=== PATIENT | male | born 1960 | race Caucasian/White ===

== ENCOUNTER 2016-07-23 18:16 | Emergency (ER) | payer MEDICARE ==
[~2016-07-23 18:16] MED LIST: AMBIEN5 MG PO; AMOXICILLIN500 M1 PO; APAP325 MG PO; ATIVAN0.5 MG PO; ATIVAN1 MG PO; BACTROBAN NASAL1 GM NS; BOUDREAUXS113 GM TP; BUPRENORPHI0.3 MG/ML INJ; CARAFATE1 G PO; COUMADIN5 MG PO; COUMADIN7.5 MG PO; D5NS IVSOL; D5W 1000 ML I1000 ML IV; DAKIN'S 0.125%480 ML TP; DIFLUCAN100 MG PO; ENSURE PLUS PO; ENSURE PO; FISH OIL 1,0001 CA1 PO; FISH OIL 1,2001 CAP PO; FLAGYL500 MG; FLAGYL500 MG PO; FLORANEX / LACT1 TAB PO; FLUCONAZOLE IVPB; HEPARIN SOD5000 U/ML INJ; HUMULIN R100 U/ML SQ; IMODIUM A-D2 MG PO; IMODIUM2 MG PO; INTRALIPID 20%250 ML IV; JANTOVEN7.5 MG PO; K-DUR20 MEQ PO; LACTINEX C1 TAB.CHEW PO; LEVAQUIN500 MG PO; LOMOTIL TABLET1 TAB PO; LORTAB 7.5/5001 TA1 PO; LOTRIMIN10 ML TP; LOVENOX30 MG/0.3 SQ; MAG-OX 400 MG400 MG PO; MEVACOR40 MG PO; MUCINEX DM ER1 EAC1 PO; MULTIPLE VITAMI1 TA1 PO; NEOSPORIN OINTM15 GM TP; NORCO 10/325 TA1 TA1 PO; NORCO 5/325 TAB1 TA1 PO; NORCO 7.5-3251 EACH PO; NORCO 7.5/325 T1 TA1 PO; ONDANSETRON4 MG/2 M3 IV; PEPCID20 MG PO; PHOS-NAK PAC1 PACKET PO; PREDNISONE10 MG PO; PREDNISONE20 MG PO; PREDNISONE5 MG PO; PRO STAT PO; PROTONIX40 MG PO; QUESTRAN LIG1 PACKET PO; QUESTRAN LIGH4 G/PKT; QUESTRAN PACK4 G/PKT PO; RAPAMUNE1 MG PO; RAPAMUNE2 MG PO; RESTORIL15 MG PO; RESTORIL7.5 MG PO; RIMACTANE300 MG PO; ROXICODONE5 MG PO; SALINE FLUSH10 ML IJ; SENSIPAR30 MG PO; TEMAZEPAM PO; TYLENOL 325 MG325 MG PO; ULTRAM50 MG PO; VANCOMYCIN250 MG/51; VASOTEC20 MG PO; VITAMIN K1 MG/0.5 M PO; ZOFRAN ODT4 MG/UDTAB PO; ZYVOX600 MG PO
[2016-07-23 20:25] LABS: BASOPHILS 0.1 % (0.0-2.0); EOSINOPHILS 0.2 % (0-7); HEMATOCRIT 41.9 % (42.0-54.0); HEMOGLOBIN 14.1 g/dL (13.5-17.5); IMMATURE GRANULOCYTES 0.2 % (0-5); LYMPHOCYTES 46.7 % (15-50); MCH 29.1 pg (26.0-34.0); MCHC 33.7 g/dL (31.0-37.0); MCV 86.4 fL (80.0-100.0); MEAN PLATELET VOLUME 11.2 fL (7.4-10.4); MONOCYTES 9.6 % (2-11); NEUTROPHILS 43.2 % (40-80); PLATELET COUNT 258 10x3/uL (130-400); RBC 4.85 10x6/uL (4.20-6.10); RDW 15.5 % (11.5-14.5); WBC 12.1 10x3/uL (4.8-10.8)
[2016-07-23 20:34] LABS: INR 2.29 (0.85-1.17); PROTIME 25.3 SECONDS (11.6-15.0)
[2016-07-23 20:39] LABS: CALC OSMOLALITY 277 mosm/kg (275-300); CALCIUM 8.8 mg/dL (8.5-10.1); CARBON DIOXIDE 21.9 mmol/L (21.0-32.0); CHLORIDE - SERUM 105 mmol/L (98-107); GLUCOSE 91 mg/dL (74-106); POTASSIUM - SERUM 4.2 mmol/L (3.5-5.1); SODIUM 139 mmol/L (136-145); UREA NITROGEN 12 mg/dL (7-18); eGFR NON AFRICAN AMERICAN 82 mL/min (90-120)
== END 2016-07-23 21:35 | disposition home or self-care (01) ==
LOC: D.ER 18:16
PROVIDERS: Emergency Medicine
DX: M79.662 Pain in left lower leg (principal); E83.42 Hypomagnesemia

== ENCOUNTER 2016-07-31 13:31 | Emergency (ER) | payer MEDICARE ==
[2016-07-31 16:27] LABS: BASOPHILS 0.1 % (0.0-2.0); EOSINOPHILS 0.1 % (0-7); HEMATOCRIT 38.7 % (42.0-54.0); HEMOGLOBIN 13.1 g/dL (13.5-17.5); IMMATURE GRANULOCYTES 0.4 % (0-5); LYMPHOCYTES 22.4 % (15-50); MCH 28.8 pg (26.0-34.0); MCHC 33.9 g/dL (31.0-37.0); MCV 85.1 fL (80.0-100.0); MEAN PLATELET VOLUME 10.8 fL (7.4-10.4); MONOCYTES 8.8 % (2-11); NEUTROPHILS 68.2 % (40-80); PLATELET COUNT 283 10x3/uL (130-400); RBC 4.55 10x6/uL (4.20-6.10); RDW 15.3 % (11.5-14.5)
[2016-07-31 16:40] LABS: ALBUMIN 2.7 g/dL (3.4-5.0); ANION GAP 14.7 mmol/L (8-16); BILIRUBIN - TOTAL 0.46 mg/dL (0.2-1.3); CALCIUM 8.9 mg/dL (8.5-10.1); CARBON DIOXIDE 22.5 mmol/L (21.0-32.0); CREATININE - SERUM 1.3 mg/dL (0.6-1.3); POTASSIUM - SERUM 4.2 mmol/L (3.5-5.1); PROTEIN - SERUM 7.5 g/dL (6.4-8.2)
[2016-07-31 20:17] LABS: APTT 68.8 SECONDS (22.8-39.4); INR 2.77 (0.85-1.17); PROTIME 29.4 SECONDS (11.6-15.0)
== END 2016-07-31 21:15 | disposition home or self-care (01) ==
LOC: D.ER 13:31
PROVIDERS: Emergency Medicine; Surgery
DX: S70.12XA Contusion of left thigh, initial encounter (principal); X58.XXXA Exposure to other specified factors, initial encounter; Y93.89 Activity, other specified; Y92.89 Other specified places as the place of occurrence of the external cause; N18.9 Chronic kidney disease, unspecified; D65 Disseminated intravascular coagulation [defibrination syndrome]; E83.42 Hypomagnesemia; M79.89 Other specified soft tissue disorders

== ENCOUNTER 2016-08-07 10:55 | Inpatient (IN) | payer MEDICARE ==
[~2016-08-07] VITALS: Ht 182.9 cm; Wt 78.2 kg
[2016-08-07] MEDS ORDERED: VIBRAMYCIN50 MG PO (13:55)
[2016-08-07] MEDS ORDERED: TEMAZEPAM30 MG PO (14:01)
[2016-08-07] MEDS ORDERED: KEFLEX500 MG PO (14:03)
[2016-08-07] MEDS ORDERED: VIBRAMYCIN 100100 MG PO (14:06)
--- NOTE | 2016-08-07 15:05 | NUR ---
PATIENT RECEIVED TO ROOM. VSS, TACHYCARDIA NOTED. ABLE TO RELATE HISTORY WITH HUMOR. AT THE BEDSIDE, PARTICIPATES IN RELAY OF INFORMATION. SPOKE WITH RIDGE JIMENEZ APN. NEW ORDERS RECEIVED FOR PAIN CONTROL AND RECEIPT OF BASELINE INFORMATION, LAB WORK. DR. SCHMITT CURRENTLY IN TO ASSESS PATIENT. WILL COMPLETE ASSESSMENT AND MEDICATE WHEN SHE HAS COMPLETED HER WORK.
--- NOTE | 2016-08-07 15:29 | NUR ---
PATIENT RATES THE PAIN IN HIS LEFT THIGH A 9. HE STATES THAT IT IS BURNING AND CRAMPING. HE IS UNABLE TO STRAIGHTEN THE STUMP BELOW THE KNEE. THE LEFT LEG IS WARM WITH A COOL PLACE THAT IS NORMAL FOR HIM. HIS BLOOD HAS BEEN DRAWN AND HE IS IMPRESSED THAT THEY WERE ABLE TO GET SOME FROM THE RIGHT ARM. SPOKE WITH THE VENOUS ACCESS NURSE, HE IS NOT A CANDIDATE FOR A MIDLINE ACCESS.
[2016-08-07 15:37] LABS: BASOPHILS 0.1 % (0.0-2.0); EOSINOPHILS 0.2 % (0-7); HEMATOCRIT 33.3 % (42.0-54.0); HEMOGLOBIN 11.1 g/dL (13.5-17.5); IMMATURE GRANULOCYTES 0.5 % (0-5); LYMPHOCYTES 28.2 % (15-50); MCH 27.5 pg (26.0-34.0); MCHC 33.3 g/dL (31.0-37.0); MCV 82.6 fL (80.0-100.0); MEAN PLATELET VOLUME 11.1 fL (7.4-10.4); MONOCYTES 8.5 % (2-11); NEUTROPHILS 62.5 % (40-80); RBC 4.03 10x6/uL (4.20-6.10); RDW 15.1 % (11.5-14.5); WBC 11.1 10x3/uL (4.8-10.8)
[2016-08-07 15:44] LABS: PLATELET COUNT 402 10x3/uL (130-400)
[2016-08-07 15:58] LABS: ALBUMIN 2.1 g/dL (3.4-5.0); ANION GAP 14.9 mmol/L (8-16); BILIRUBIN - TOTAL 0.29 mg/dL (0.2-1.3); CALCIUM 8.7 mg/dL (8.5-10.1); CARBON DIOXIDE 21.8 mmol/L (21.0-32.0); CREATININE - SERUM 1.2 mg/dL (0.6-1.3); INR 3.25 (0.85-1.17); POTASSIUM - SERUM 3.7 mmol/L (3.5-5.1); PROTEIN - SERUM 6.9 g/dL (6.4-8.2); PROTIME 33.5 SECONDS (11.6-15.0)
--- NOTE | 2016-08-07 16:01 | NUR ---
IV ACESS OBTAINED IN THE LEFT FOREARM, FIRST ATTEMPT.
[2016-08-07 17:19] VITALS: BP 113/73
[2016-08-07 18:33] VITALS: BP 113/73; BMI 233.5
[2016-08-07 21:08] VITALS: BP 119/71; BP 90/61
--- NOTE | 2016-08-08 00:03 | NUR ---
NO CHANGES NOTED IN ASSESSMENT. NO NEEDS VOICED. CALL LIGHT WITHIN REACH. WILL CONT TO MONITOR.
[2016-08-08 00:07] VITALS: BP 103/65
--- NOTE | 2016-08-08 00:55 | NUR ---
RESING WITH EYES CLOSED, RESPERTIOSN EVEN, NO S/S DISTRESS NOTED.
[2016-08-08 04:15] VITALS: BP 116/71
[2016-08-08 06:46] LABS: BASOPHILS 0.1 % (0.0-2.0); EOSINOPHILS 0.6 % (0-7); HEMATOCRIT 32.3 % (42.0-54.0); HEMOGLOBIN 10.6 g/dL (13.5-17.5); IMMATURE GRANULOCYTES 0.5 % (0-5); LYMPHOCYTES 38.9 % (15-50); MCH 27.4 pg (26.0-34.0); MCHC 32.8 g/dL (31.0-37.0); MCV 83.5 fL (80.0-100.0); MEAN PLATELET VOLUME 11.8 fL (7.4-10.4); MONOCYTES 10.1 % (2-11); NEUTROPHILS 49.8 % (40-80); PLATELET COUNT 378 10x3/uL (130-400); RBC 3.87 10x6/uL (4.20-6.10); RDW 15.4 % (11.5-14.5); WBC 10.8 10x3/uL (4.8-10.8)
[2016-08-08 07:05] LABS: CALC OSMOLALITY 277 mosm/kg (275-300); CALCIUM 8.7 mg/dL (8.5-10.1); CARBON DIOXIDE 22.3 mmol/L (21.0-32.0); CHLORIDE - SERUM 106 mmol/L (98-107); GLUCOSE 98 mg/dL (74-106); POTASSIUM - SERUM 3.2 mmol/L (3.5-5.1); SODIUM 139 mmol/L (136-145); UREA NITROGEN 12 mg/dL (7-18); VANCOMYCIN - TROUGH 8.3 ug/mL (10.0-20.0); eGFR NON AFRICAN AMERICAN 82 mL/min (90-120)
--- NOTE | 2016-08-08 08:00 | NUR ---
AM ROUNDING- PT LAYING IN BED ON RIGHT SIDE WITH EYES CLOSED RESTING. WHEELCHAIR IS AT BEDSIDE. ON LOVENOX INJECTION FOR DVT PREVENTION. PER REPORT FROM INTERNATIONAL BROADCAST MUSIC LIBRARIAN NURSE ELÍAS, PT IS ALERT AND ORIENTED. RIGHT AKA SEEN. 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 IV SEEN TO LEFT FOREARM WITH NS RUNNING AT 20CC. ON ROOM AIR. NO MONITOR. NO NEED AT CURRENT TIME. WILL CONTINUE TO MONITOR. 0750- PAGED RIDGE JIMENEZ APN TO NOTIFY HER OF PTS POTASSUM LEVEL (3.2). SARA SABILLON STATED SHE WOULD BE TO UNIT SOON AND WILL PUT NEW ORDERS IN WHEN SHE GETS HERE ON UNIT. NO NEW ORDERS RECEIVED. WILL AWAIT NEW ORDERS WHEN SARA SABILLON GETS TO UNIT. WILL CONTINUE TO MONITOR.
[2016-08-08 08:06] VITALS: BP 105/75
[2016-08-08 10:38] VITALS: Ht 182.9 cm; Wt 78.2 kg
[2016-08-08 11:55] VITALS: BP 115/71
[2016-08-08 15:03] VITALS: BP 110/66
--- NOTE | 2016-08-08 15:07 | NUR ---
FABIEN JOHNSON CAME TO ME AND INFORMED ME THAT PTS TEMP ORALLY IS 101.8 AND HR IS 120. PAGED RIDGE JIMENEZ APN TO INFORM HER OF THIS, AWAITING CALLBACK. GAVE PT PRN TYLENOL ORDERED FOR FEVER/PAIN. ALSO PAGEAkiko SABILLON APN TO INFORM HER OF PTS VANC TROUGH LEVEL. AWAITING CALLBACK.
--- NOTE | 2016-08-08 15:56 | NUR ---
RIDGE JIMENEZ APN CALLED BACK. INFORMED HER OF PTS TEMP (101.8 ORALLY) AND INFORMED HER OF PTS VANC TROUGH LEVEL. NEW ORDERS RECEIVED. WILL CONTINUE TO MONITOR.
--- NOTE | 2016-08-08 16:48 | NUR ---
RECHECKED PTS TEMP, TEMP IS NOW 99.2 ORALLY.
--- NOTE | 2016-08-08 17:53 | NUR ---
PT SITTING UP ON SIDE OF THE BED. IS AT BEDSIDE. CEFTRIAXONE IS CURRENTLY INFUSING IVPB. ON ROOM AIR. PT DENIES ANY NEED AT CURRENT TIME. WILL CONTINUE TO MONITOR.
--- NOTE | 2016-08-08 19:50 | NUR ---
BUPRENEX 0.3 MG GIVEN AT TP REQUEST FOR C/O PAIN TO BACK OF LEFT THIGH. RATES PAIN AT A 7 ON PAIN SCALE. WILL CONT TO MONITOR.
[2016-08-08 21:26] VITALS: BP 103/65
--- NOTE | 2016-08-08 22:05 | NUR ---
HS MEDS GIVEN, PT STATES THAT PAIN TO BACK OF LEFT LEG IS STILL THERE BUT MORE TOLERABLE, OFFERED PT PAIN MEDS, DECLINED AT THIS TIME. WILL CONT TO MONITOR. AT BED SIDE.
[2016-08-09 00:30] VITALS: BP 110/62
--- NOTE | 2016-08-09 01:28 | NUR ---
DILAUDID 2 MG TABLET GIVEN FOR C/O PAIN TO LEFT LEG.
[2016-08-09 04:30] VITALS: BP 110/75
[2016-08-09 06:46] LABS: MAGNESIUM - SERUM 1.6 mg/dL (1.8-2.4); PHOSPHOROUS 2.6 mg/dL (2.5-4.9); VANCOMYCIN - RANDOM 8.1 ug/mL (10.0-20.0)
[2016-08-09 08:13] VITALS: BP 109/64
[2016-08-09 10:10] LABS: CALC OSMOLALITY 273 mosm/kg (275-300); CALCIUM 8.8 mg/dL (8.5-10.1); CARBON DIOXIDE 24.4 mmol/L (21.0-32.0); CHLORIDE - SERUM 104 mmol/L (98-107); GLUCOSE 109 mg/dL (74-106); POTASSIUM - SERUM 3.6 mmol/L (3.5-5.1); SODIUM 137 mmol/L (136-145); UREA NITROGEN 11 mg/dL (7-18); eGFR NON AFRICAN AMERICAN 82 mL/min (90-120)
[2016-08-09 10:17] LABS: BASOPHILS 0.1 % (0.0-2.0); EOSINOPHILS 0.5 % (0-7); HEMOGLOBIN 10.3 g/dL (13.5-17.5); IMMATURE GRANULOCYTES 0.6 % (0-5); LYMPHOCYTES 19.5 % (15-50); MCH 27.1 pg (26.0-34.0); MCHC 32.2 g/dL (31.0-37.0); MCV 84.2 fL (80.0-100.0); MEAN PLATELET VOLUME 11.4 fL (7.4-10.4); MONOCYTES 10.1 % (2-11); NEUTROPHILS 69.2 % (40-80); RDW 15.2 % (11.5-14.5); WBC 11.9 10x3/uL (4.8-10.8)
[2016-08-09 10:18] LABS: PLATELET COUNT 457 10x3/uL (130-400)
[2016-08-09 10:28] LABS: INR 2.16 (0.85-1.17); PROTIME 24.2 SECONDS (11.6-15.0)
[2016-08-09 12:43] VITALS: BP 111/75
[2016-08-09 16:00] VITALS: BP 95/57
--- NOTE | 2016-08-09 19:14 | NUR ---
DILAUDID 2 MG TAB GIVEN AT PT REQUEST FOR C/O PAIN TO LEFT LEG.
[2016-08-09 21:24] VITALS: BP 113/71
[2016-08-10] VITALS (13 sets, daily range): BP systolic 100–116; BP diastolic 56–70
--- NOTE | 2016-08-10 00:23 | NUR ---
FOOD PREPARER AT BEDSIDE FOR VS. NEEDS ADDRESSED, CALL LIGHT IN REACH. WILL CONT TO MONITOR.
--- NOTE | 2016-08-10 03:20 | NUR ---
RESTING WITH EYES CLOSED, RESPERATIONS EVEN, NO S/S DISTRESS NOTED.
[2016-08-10 05:04] LABS: BASOPHILS 0.1 % (0.0-2.0); EOSINOPHILS 1.3 % (0-7); HEMATOCRIT 32.8 % (42.0-54.0); HEMOGLOBIN 10.6 g/dL (13.5-17.5); IMMATURE GRANULOCYTES 0.5 % (0-5); LYMPHOCYTES 33.9 % (15-50); MCH 27.3 pg (26.0-34.0); MCHC 32.3 g/dL (31.0-37.0); MCV 84.5 fL (80.0-100.0); MEAN PLATELET VOLUME 11.2 fL (7.4-10.4); NEUTROPHILS 52.2 % (40-80); PLATELET COUNT 461 10x3/uL (130-400); RBC 3.88 10x6/uL (4.20-6.10); RDW 15.2 % (11.5-14.5); WBC 11.9 10x3/uL (4.8-10.8)
[2016-08-10 05:16] LABS: CALC OSMOLALITY 274 mosm/kg (275-300); CALCIUM 8.7 mg/dL (8.5-10.1); CARBON DIOXIDE 24.5 mmol/L (21.0-32.0); CHLORIDE - SERUM 104 mmol/L (98-107); GLUCOSE 97 mg/dL (74-106); POTASSIUM - SERUM 3.5 mmol/L (3.5-5.1); SODIUM 138 mmol/L (136-145); UREA NITROGEN 11 mg/dL (7-18); VANCOMYCIN - RANDOM 12.1 ug/mL (10.0-20.0); eGFR NON AFRICAN AMERICAN 82 mL/min (90-120)
[2016-08-10 05:18] LABS: INR 1.81 (0.85-1.17)
[2016-08-10 05:19] LABS: APTT 51.6 SECONDS (22.8-39.4)
--- NOTE | 2016-08-10 10:03 | NUR ---
ARRIVE BACK TO ROOM FROM CT BIOPSY OF LT LEG HEMATOMA. ALERT AND ORIENTED X4. LAYING IN BED. BP-116/70, T-98.4, P-99, R-16, O2-97% RA. LT POSTERIOR LEG DRESSING CLEAN DRY INTACT. CONTINUE TO MONITOR. BED LOCKED AND LOW. CALL LIGHT IN REACH. TWO SIDERAILS UP.
[2016-08-10 13:34] LABS: EOS BF 55 %; LYMPH - BF 12 %; MACROPHAGES BF 1 %; NEUT - BF 32 %
[2016-08-10 14:16] LABS: APPEARANCE HAZY (CLEAR); COLOR YELLOW (YELLOW)
[2016-08-10 14:17] LABS: PROTEIN TRACE mg/dL (NEGATIVE); RED CELLS - URINE 0-5 /hpf (0-5); WHITE CELLS - URINE 0-5 /hpf (0-5)
[2016-08-10 14:18] LABS: BACTERIA MODERATE /hpf (NONE SEEN); BILIRUBIN NEGATIVE (NEGATIVE); EPITHELIAL CELLS OCC /hpf (0-5); GLUCOSE NEGATIVE (NEGATIVE); GRANULAR CAST RARE /lpf (NONE SEEN); KETONE NEGATIVE (NEGATIVE); LEUKOCYTE ESTERASE NEGATIVE (NEGATIVE); NITRITE NEGATIVE (NEGATIVE); UROBILINOGEN NORMAL (NORMAL)
--- NOTE | 2016-08-10 18:05 | NUR ---
ALERT AND ORIENTED X4. RESTING IN BED. AT BEDSIDE. TYLENOL GIVEN FOR LOW GRADE TEMP 99. CONTINUE PAIN MANAGEMENT ORDERED. DENIES SOB. CONTINUE PLAN OF CARE ORDERED.
--- NOTE | 2016-08-10 19:30 | NUR ---
ASSESSMENT COMPLETE. VOICES NO C/O PAIN OR DISCOMFORT AT THIS TIME. HOB FLAT, SR UP X2, C/L UIN REACH, RT AKA, LT BKA, RT HAND AMP. AND LEFT HAND WITH 3 TIPS OF FINGERS AMP NOTED. WELL HEALED. ON ROOM AIR, LEFT WRIST SL INTACT WITH NO R/S NOTED AT SITE. UP AD CHEL WITH W/C W/O DIFF. JEYSON WELL. CONTINUE TO MONITOR.
[2016-08-11 01:19] VITALS: BP 99/63
[2016-08-11 05:06] VITALS: BP 98/62
[2016-08-11 05:53] LABS: BASOPHILS 0.1 % (0.0-2.0); EOSINOPHILS 1.2 % (0-7); HEMATOCRIT 31.6 % (42.0-54.0); HEMOGLOBIN 10.1 g/dL (13.5-17.5); IMMATURE GRANULOCYTES 0.6 % (0-5); LYMPHOCYTES 35.2 % (15-50); MCH 26.8 pg (26.0-34.0); MCV 83.8 fL (80.0-100.0); MEAN PLATELET VOLUME 11.4 fL (7.4-10.4); MONOCYTES 10.2 % (2-11); NEUTROPHILS 52.7 % (40-80); PLATELET COUNT 382 10x3/uL (130-400); RBC 3.77 10x6/uL (4.20-6.10); RDW 15.4 % (11.5-14.5); WBC 9.7 10x3/uL (4.8-10.8)
[2016-08-11 06:45] LABS: ALBUMIN 1.8 g/dL (3.4-5.0); ALKALINE PHOSPHATASE 80 U/L (46-116); ALT (SGPT) 100 U/L (10-68); BILIRUBIN - TOTAL 0.37 mg/dL (0.2-1.3); CALC OSMOLALITY 274 mosm/kg (275-300); CALCIUM 8.9 mg/dL (8.5-10.1); CARBON DIOXIDE 22.9 mmol/L (21.0-32.0); CHLORIDE - SERUM 104 mmol/L (98-107); GLUCOSE 98 mg/dL (74-106); PHOSPHOROUS 3.1 mg/dL (2.5-4.9); PROTEIN - SERUM 6.3 g/dL (6.4-8.2); SODIUM 138 mmol/L (136-145); UREA NITROGEN 10 mg/dL (7-18); VANCOMYCIN - RANDOM 29.6 ug/mL (10.0-20.0); eGFR NON AFRICAN AMERICAN 82 mL/min (90-120)
[2016-08-11 07:16] LABS: INR 1.58 (0.85-1.17); PROTIME 18.8 SECONDS (11.6-15.0)
--- NOTE | 2016-08-11 07:30 | NUR ---
RECEIVED PT UP IN W/C AAOX4 PAIN 08/21 DENIES ANY NEEDS OR DISCOMFORT WILL CONT TO MONITOR
[2016-08-11 08:12] VITALS: BP 111/71
--- NOTE | 2016-08-11 11:29 | NUR ---
Patient Name: GARDENIA SUERO Admission Status: Elective Accout number: [id number] Admission Date: 08-07-2016 : 1960 Admission Diagnosis: Attending: KEO Current LOS: 4 Anticipated DC Date: Planned Disposition: Home Primary Insurance: MEDICARE A & B Discharge Planning Comments: * Is the patient Alert and Oriented? Yes 0 * How many steps to enter\exit or inside your home? NONE 0 * PCP DR. ARREGUIN 0 * Pharmacy [facility]. 0 * Preadmission Environment Home with Family 0 * ADLs Independent 0 * Equipment Other Wheelchair 0 * Other Equipment POWER WHEEL CHAIR [employer] - MEDICAL EQUIPMENT PROVIDER 0 * List name and contact numbers for known caregivers / representatives who currently or will assist patient after discharge: NIK SUER[place]ON, 0 * Community resources currently utilized None 0 * Please name any agencies selected above. NONE 0 * Additional services required to return to the preadmission environment? No 0 * Can the patient safely return to the preadmission environment? Yes 0 * Has this patient been hospitalized within the prior 30 days at any hospital? No 0 CM MET WITH PT IN ROOM TO DISCUSS DISCHARGE PLANNING AND NEEDS. PT REPORTS LIVING AT HOME INDEPENDENTLY WITH SPOUSE. PT HAS TRANSPORT CHAIR AND POWER WHEELCHAIR, MEDICAL EQUIOPMENT PROVIDER IS [employer]. PT HAS NO OUTSIDE SERVICES ASSISTING IN THE HOME. CM DISCUSSED AVAILABILITY OF HOME HEALTH, REHAB SERVICES AND MEDICAL EQUIPMENT. PT DENIES DISCHARGE NEEDS, REPORTS HIS SPOUSE WILL PICK HIM UP FOR DISCHARGE HOME. PT PLANS TO DISCHARGE HOME WITH SPOUSE, NO ANTICIPATED DISCHARGE NEEDS. CM TO FOLLOW AND ASSIST NEEDED. Final Assembler Boat: Braeden Veras
[2016-08-11 12:14] VITALS: BP 112/73
--- NOTE | 2016-08-11 13:53 | NUR ---
PT TO OR VIA BED IN STABLE CONDITION FOR CENTRAL VENOUS LINE PLACEMENT
--- NOTE | 2016-08-11 13:58 | NUR ---
Nutrition follow-up: Diet: Regular PO intake ~40% average of last 7 meals Pt has been NPO for surgery Labs reviewed +BM Wt: 149# Will continue to provide food choices and honor food preferences. RDN following.
[2016-08-11 15:59] VITALS: BP 116/81
--- NOTE | 2016-08-11 16:06 | NUR ---
CENTRAL LINE PLACED LT IJ RECEIVED CALL FROM DR ALLEN IN RADIOLOGY HE REPORTS CENTRAL LINE IS IN INNOMATE VEIN 3 CM SHORT OF SUPERIOR VENA CAVA CALLED INFORMATION TO MARCIA PENG APN WHO IN TURN HAD ME CONTACT DR LAMBERT WITH INFORMATION HE STATED IT WAS FINE TO USE CENTRAL LINE BUT NO HYPERALIMENTATION TO BE GIVEN
[2016-08-11 20:00] VITALS: BP 120/79
--- NOTE | 2016-08-11 21:00 | NUR ---
PM MEDICATIONS GIVEN W/O DIFF. PAIN BEDICATION GIVEN PER REQUEST. UP AD CHEL WITH W/C. LEFT TLIJ INTACT AND LOCKED. DRSG CDI.LEFT BKA, RIGHT AKA,, RT HAND AMP AND LEFT HAND FINGER TIPS AMP NOTED. ON ROOM AIR, RESP UNLAB HOB UP SR UP X2, C/L IN REACH. CONTINUE TO MONITOR.
[2016-08-12] VITALS: BP 132/82
--- NOTE | 2016-08-12 01:45 | NUR ---
EYES CLOSED, RESP UNLAB WITH NO S/S OF ACUTE DISTRESS NOTED. C/L IN REACH.
[2016-08-12 04:00] VITALS: BP 111/78
[2016-08-12 06:14] LABS: BASOPHILS 0.1 % (0.0-2.0); EOSINOPHILS 1.8 % (0-7); HEMATOCRIT 32.3 % (42.0-54.0); HEMOGLOBIN 10.4 g/dL (13.5-17.5); IMMATURE GRANULOCYTES 0.6 % (0-5); LYMPHOCYTES 38.2 % (15-50); MCH 27.2 pg (26.0-34.0); MCHC 32.2 g/dL (31.0-37.0); MCV 84.6 fL (80.0-100.0); MONOCYTES 10.7 % (2-11); NEUTROPHILS 48.6 % (40-80); PLATELET COUNT 399 10x3/uL (130-400); RBC 3.82 10x6/uL (4.20-6.10); RDW 15.5 % (11.5-14.5)
--- NOTE | 2016-08-12 07:37 | NUR ---
LEFT TRIPLE LUMEN IJ SEEN WITH ABX INFUSING AT PRESENT TIME. ON ROOM AIR. LEFT BKA, RIGHT AKA, RIGHT HAND MISSING TO RIGHT FA, ON LEFT HAND MISSING SOME FINGERTIPS. DENIES NEEDS AT PRESENT TIME. WILL CONTINUE TO MONITOR.
[2016-08-12 08:49] VITALS: BP 121/84
[2016-08-12 12:45] VITALS: BP 98/72
[2016-08-12 15:44] VITALS: BP 99/64
--- NOTE | 2016-08-12 18:30 | NUR ---
LAYING ON RIGHT SIDE ABX FINSIH INFUSING. DENIES ANY NEEDS AT PRESENT TIME. WILL CONTINUE TO MONITOR.
[2016-08-12 20:00] VITALS: BP 102/61
[2016-08-13] VITALS: BP 122/72
[2016-08-13 04:00] VITALS: BP 111/73
--- NOTE | 2016-08-13 05:48 | NUR ---
QUIET IN BED AT THIS TIME. HOB UP SR UP X2, C/L IN REACH. CONTINUE TO MONITOR.
[2016-08-13 06:21] LABS: BASOPHILS 0.1 % (0.0-2.0); EOSINOPHILS 1.5 % (0-7); HEMATOCRIT 30.9 % (42.0-54.0); IMMATURE GRANULOCYTES 0.6 % (0-5); LYMPHOCYTES 38.2 % (15-50); MCH 27.3 pg (26.0-34.0); MCHC 32.4 g/dL (31.0-37.0); MCV 84.4 fL (80.0-100.0); MEAN PLATELET VOLUME 10.9 fL (7.4-10.4); MONOCYTES 11.2 % (2-11); NEUTROPHILS 48.4 % (40-80); RBC 3.66 10x6/uL (4.20-6.10); RDW 15.3 % (11.5-14.5); WBC 10.9 10x3/uL (4.8-10.8)
[2016-08-13 06:30] LABS: PLATELET COUNT 506 10x3/uL (130-400)
[2016-08-13 06:42] LABS: CALC OSMOLALITY 276 mosm/kg (275-300); CALCIUM 8.6 mg/dL (8.5-10.1); CARBON DIOXIDE 24.8 mmol/L (21.0-32.0); CHLORIDE - SERUM 104 mmol/L (98-107); GLUCOSE 92 mg/dL (74-106); MAGNESIUM - SERUM 1.8 mg/dL (1.8-2.4); PHOSPHOROUS 3.4 mg/dL (2.5-4.9); POTASSIUM - SERUM 3.2 mmol/L (3.5-5.1); SODIUM 139 mmol/L (136-145); UREA NITROGEN 10 mg/dL (7-18); eGFR NON AFRICAN AMERICAN 82 mL/min (90-120)
--- NOTE | 2016-08-13 07:32 | NUR ---
0715-AM ROUNDING DONE. WAS JUST GIVEN PAIN MEDICATION 12/21 TO LEFT LEG. LEFT IJ CVL SALINE LOCK. WILL CONTINUE TO MONITOR.
[2016-08-13 07:49] VITALS: BP 104/70
[2016-08-13 12:36] VITALS: BP 128/77
--- NOTE | 2016-08-13 14:24 | NUR ---
Nutrition follow-up: Diet: REgular PO intake ~50% of meals Pt reports not feeling well today. Labs reviewed Wt: 149# Will continue to provide food choices and honor food preferences. RDN following.
[2016-08-13 16:21] VITALS: BP 118/74
--- NOTE | 2016-08-13 17:05 | NUR ---
STILL NPO AWAITING XRAYS. CALLED TO RADIOLOGY TO SEE WHEN THEY WOULD BE DONE, REPORTED BETWEEN 6-8 PM.
--- NOTE | 2016-08-13 18:18 | NUR ---
ULTRASOUND HERE, PATIENT CAN EAT AFTER THIS.
[2016-08-13 20:00] VITALS: BP 107/72
--- NOTE | 2016-08-13 22:14 | NUR ---
ASSESSED AT THE BEGINNING OF THE SHIFT. PT IS ALERT AND ORIENTED, ABLE TO VERBALIZE NEEDS. HE HAS AN OLD LT BKA, RT AKA AND RT ARM FOREARM AMPUTATION. URINAL IS AT THE BEDSIDE WHICH HE CAN USE AT ABOUT 2000 HE RECEIVED PAIN MEDS ORDERED AND HE IS FEELING MUCH BETTER AT THIS TIME. THE BED IS LOW, RAILS UP X'S 2 WITH THE CALL LIGHT AT HAND.
[2016-08-14 04:00] VITALS: BP 105/66
--- NOTE | 2016-08-14 04:05 | NUR ---
PT IS RESTING QUIET AFTER RECEIVING PAIN MEDS ORDERED DURING THE SHIFT, FIRST BURPNEX AND THEN NORCO . HE DID SLEEP SOME BUT NOT ALOT.
[2016-08-14 05:59] LABS: CALC OSMOLALITY 274 mosm/kg (275-300); CALCIUM 8.7 mg/dL (8.5-10.1); CARBON DIOXIDE 24.7 mmol/L (21.0-32.0); CHLORIDE - SERUM 104 mmol/L (98-107); GLUCOSE 94 mg/dL (74-106); POTASSIUM - SERUM 3.4 mmol/L (3.5-5.1); SODIUM 138 mmol/L (136-145); UREA NITROGEN 11 mg/dL (7-18); eGFR NON AFRICAN AMERICAN 82 mL/min (90-120)
[2016-08-14 06:10] LABS: INR 2.58 (0.85-1.17); PROTIME 27.8 SECONDS (11.6-15.0)
[2016-08-14 08:13] VITALS: BP 108/69
--- NOTE | 2016-08-14 09:21 | NUR ---
PT PLACED ON NPO STATUS DUE TO POSSIBLE I AND D THIS AFTERNOON PT AWARE OF PLAN OF CARE AND VERBALIZED UNDERSTANDING, PT C/O PAIN AND PAIN MEDS ADMIN ORDERED NO DISTRESS OBSERVED AND WILL MONITOR
--- NOTE | 2016-08-14 10:29 | NUR ---
PT ASSESMENT COMPLETED AND PT PLACED ON NPO FOR I AND D VERONIQUE SEVERINO RN OBTAINED CONSENT AND PT TAKEN TO RADIOLOGY TO HAVE PROCEDURE COMPLETED NO DISTRESS OBSERVED CALL LIGHT IN REACH SRX2 BED LOW AND LOCKED WILL MONITOR
--- NOTE | 2016-08-14 11:51 | NUR ---
PT LAYING IN BED NO DISTRESS OBSERVED CALL LIGHT IN REACH SRX2 [facility]
[2016-08-14 11:52] VITALS: BP 101/56
[2016-08-14 16:15] VITALS: BP 121/77
--- NOTE | 2016-08-14 19:38 | NUR ---
RECEIVED REPORT, PT ASKING TO HAVE DRAIN TUBE RE TAPED, ASKING FOR PAIN MEDS, GAVE A NORCO, BED IS LOW, SRX2, CALL LIGHT IN REACH, WILL CONTINUE TO MONITOR
[2016-08-14 20:55] VITALS: BP 121/72
--- NOTE | 2016-08-14 22:33 | NUR ---
PT LAYING IN BED NO DISTRESS OBSERVED CALL LIGHT IN REACH SRX2 BED LOW AND LOCKED WILL MONITOR
[2016-08-15 00:11] VITALS: BP 109/66
--- NOTE | 2016-08-15 02:36 | NUR ---
ASSESSMENT COMPLETE, PT SLEEPING, CALL LIGHT IN REACH
[2016-08-15 04:49] VITALS: BP 102/61
[2016-08-15 07:38] LABS: BASOPHILS 0.2 % (0.0-2.0); EOSINOPHILS 1.4 % (0-7); HEMATOCRIT 32.6 % (42.0-54.0); HEMOGLOBIN 10.4 g/dL (13.5-17.5); IMMATURE GRANULOCYTES 1.1 % (0-5); LYMPHOCYTES 38.7 % (15-50); MCH 27.4 pg (26.0-34.0); MCHC 31.9 g/dL (31.0-37.0); MEAN PLATELET VOLUME 11.7 fL (7.4-10.4); MONOCYTES 11.8 % (2-11); NEUTROPHILS 46.8 % (40-80); PLATELET COUNT 524 10x3/uL (130-400); RBC 3.79 10x6/uL (4.20-6.10); RDW 15.9 % (11.5-14.5); WBC 10.3 10x3/uL (4.8-10.8)
[2016-08-15 08:01] VITALS: BP 93/64
[2016-08-15 08:01] LABS: CALC OSMOLALITY 274 mosm/kg (275-300); CHLORIDE - SERUM 105 mmol/L (98-107); GLUCOSE 79 mg/dL (74-106); POTASSIUM - SERUM 3.6 mmol/L (3.5-5.1); SODIUM 139 mmol/L (136-145); UREA NITROGEN 8 mg/dL (7-18); eGFR NON AFRICAN AMERICAN 82 mL/min (90-120)
--- NOTE | 2016-08-15 09:38 | NUR ---
PT ASSESSMENT COMPLETED FAMILY/FRIEND IN ROOM AT BEDSIDE AND NO DISTRESS OBSERVED OR VOICED PT C/O PAIN AND PAIN MEDS ADMIN ORDERED DRAINAGE TO LEFT UPPER THIGH DRAINING AND DRESSING INTACT RESPERATIONS EVEN AND UNLABORED ON ROOM AIR AND ANTIBX INFUSING WILL MONITOR
[2016-08-15 12:02] VITALS: BP 96/58
--- NOTE | 2016-08-15 13:10 | NUR ---
ASSUMED CARE OF PATIENT. RESTING IN BED WITH EYES OPEN. RESP EVEN AND UNLABORED. DRAIN TO LEFT LATERAL THIGH WITH MINIMAL DRAINAGE. PATIENT COMPLAIN OF PAIN. RESP EVEN AND UNLABORED. NO DISTRESS. CALL LIGHT WITHIN REACH.
--- NOTE | 2016-08-15 13:19 | NUR ---
MEDICATED FOR PAIN AT THIS TIME. NO DISTRESS.
[2016-08-15 15:51] VITALS: BP 115/74
--- NOTE | 2016-08-15 16:28 | NUR ---
RESTING IN BED WITH EYES OPEN. FEMALE VISITOR AT BEDSIDE. DENIES NEEDS. CALL LIGHT WITHIN REACH. NO DISTRESS.
--- NOTE | 2016-08-15 17:33 | NUR ---
MEDICATED FOR PAIN AT THIS TIME. NO DISTRESS.
--- NOTE | 2016-08-15 18:04 | NUR ---
DRAIN TUBING FLUSHED AT THIS TIME TO ENSURE TUBING PATENT. LONG CLOTS FLUSHED FROM TUBING. 50CC EMPTIED FROM DRAIN BAG MINUS 20CC OF FLUSH, PATIENT HAD 30 CC OUTPUT THIS SHIFT FROM LEFT LATERAL THIGH DRAIN.
--- NOTE | 2016-08-15 18:58 | OP ---
PATIENT NAME: GARDENIA CAM MEDICAL RECORD: [id number] :58 LOCATION:D.M2 D.2136 ADMISSION DATE:08/07/16 SURGEON: BARBARA LAMBERT MD DATE OF OPERATION: 08/11/2016 OPERATION PERFORMED: Ultrasound-guided access to the left internal jugular vein and superior vena cavogram and insertion of an Arrow guard triple lumen central venous line non-tunneled. SURGEON: Barbara Lambert MD ANESTHESIA: Local 1% lidocaine with epinephrine buffered with bicarbonate monitoring per MUD GRINDER. REFERRING PHYSICIAN: Cuauhtemoc Lopez MD PREOPERATIVE NOTE: Mr. 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 He is admitted to the hospital for antibiotic therapy as well as initial diagnosis, etc. Dr. Lopez consulted me this morning asking for placement of a central line for an extended treatment with medications, particularly antibiotics. DESCRIPTION OF PROCEDURE: With the patient on the operating table under monitoring by MUD GRINDER, but no other medications due to is not having been n.p.o. for a sufficient period of time. He was prepped and draped in a sterile manner. 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 Skin and subcutaneous tissues were anesthetized with lidocaine and a small incision made and through that, a needle and then a guidewire were inserted with ultrasound guidance, the guidewire would not pass down or at end of the brachiocephalic vein and superior vena cava, but tended to either go up the internal jugular vein or out laterally via the subclavian. I injected 5 cc of nonionic contrast via the access needle in the left internal jugular vein and demonstrated that the internal jugular and the brachiocephalic vein and superior vena cava were patent, but there was a tortuosity of the internal jugular vein which was causing the problem. I advanced a Mini-Stick catheter then over the guidewire, and under fluoroscopy, was able to manipulate it back and down around the curvature of the internal jugular vein and down into the superior vena cava and right atrium. The dilator was then passed over the wire and lastly the triple lumen Arrow guard catheter was inserted over the wire and under fluoroscopy its tip confirmed to reach into the superior vena cava or near the cavoatrial junction. All 3 lumens of the catheter yielded of blood on aspiration. They were then flushed with saline and then locked with heparin 100 units per cc. The catheter was sutured in place with 2-0 silk and a sterile dressing applied and the patient having tolerated the procedure well, but with some discomfort was returned to his room on med 2. I have asked for a chest x-ray to be done there. TRANSINT:[id number] Voice Confirmation ID: [id number] DOCUMENT ID: [id number] OPERATIVE REPORT [id number] GARDENIA CAM JAMES MD at 1858 CC: BARBARA LAMBERT MD and CUAUHTEMOC LOPEZ MD [id number] DICTATION DATE: 08/11/16 1540 HOOP FLARING MACHINE OPERATOR: 08/11/16 2251 ADM IN [facility] [address] [place] [address]
--- NOTE | 2016-08-15 19:00 | NUR ---
REPORT GIVEN TO ONCOMING NURSE. NO DISTRESS.
[2016-08-15 20:30] VITALS: BP 108/70
[2016-08-16] VITALS (7 sets, daily range): BP systolic 100–119; BP diastolic 60–80
[2016-08-16 05:08] LABS: BASOPHILS 0.2 % (0.0-2.0); EOSINOPHILS 2.1 % (0-7); HEMATOCRIT 32.8 % (42.0-54.0); HEMOGLOBIN 10.5 g/dL (13.5-17.5); IMMATURE GRANULOCYTES 1.5 % (0-5); LYMPHOCYTES 43.2 % (15-50); MCH 27.2 pg (26.0-34.0); MEAN PLATELET VOLUME 10.8 fL (7.4-10.4); MONOCYTES 11.7 % (2-11); NEUTROPHILS 41.3 % (40-80); PLATELET COUNT 555 10x3/uL (130-400); RBC 3.86 10x6/uL (4.20-6.10); RDW 15.5 % (11.5-14.5); WBC 9.1 10x3/uL (4.8-10.8)
[2016-08-16 05:19] LABS: CALC OSMOLALITY 277 mosm/kg (275-300); CARBON DIOXIDE 25.5 mmol/L (21.0-32.0); CHLORIDE - SERUM 107 mmol/L (98-107); GLUCOSE 96 mg/dL (74-106); POTASSIUM - SERUM 3.6 mmol/L (3.5-5.1); SODIUM 140 mmol/L (136-145); UREA NITROGEN 9 mg/dL (7-18); eGFR NON AFRICAN AMERICAN 82 mL/min (90-120)
[2016-08-16 05:34] LABS: INR 2.48 (0.85-1.17)
--- NOTE | 2016-08-16 07:30 | NUR ---
WALKING ROUNDS,WITHOUT DITRESS.CALL LIGHT IN REACH
--- NOTE | 2016-08-16 09:00 | NUR ---
ASSESSMENT PER FLOW SHEET.PT WITHOUT DISTRESS.MONITOR
[2016-08-16 09:20] LABS: ALBUMIN 2.2 g/dL (3.4-5.0); BILIRUBIN - DIRECT 0.07 mg/dL (0.00-0.30); BILIRUBIN - INDIRECT 0.05 mg/dL (0.00-1.00); BILIRUBIN - TOTAL 0.12 mg/dL (0.2-1.3); PROTEIN - SERUM 6.7 g/dL (6.4-8.2)
--- NOTE | 2016-08-16 11:00 | NUR ---
PAIN MEDS ORDERED PER AUG.
--- NOTE | 2016-08-16 14:15 | NUR ---
DRAIN FLUSHED ORDERED.
--- NOTE | 2016-08-16 14:20 | NUR ---
PAIN MEDS ORDERED PER MAR
--- NOTE | 2016-08-16 19:30 | NUR ---
REMAINS WITHOUT NEEDS,WITHOUT CHANGE.CONT PLAN OF CARE
--- NOTE | 2016-08-16 20:30 | NUR ---
INITIAL ROUNDS COMPLETED AT 1930 HRS. PT DENIED ANY DISCOMFORT. ASSESSMENT COMPETED AT 2000 HRS. VSS, LIJTL SL. LUNGS CTA. LBKA, RAKA, R HAND AMPUTATION AND L THUMB AMPUTATION NOTED. NUMEROUS SKIN GRAFTS NOTED. BILI DRAIN TO L THIGH WITH BROWN/RED EXUDATE NOTED. WILL CONTINUE TO MONITOR. SR UP X2, CALL LIGHT WITHIN REACH.
--- NOTE | 2016-08-16 21:55 | NUR ---
PM MEDS GIVEN. BILI DRAIN FLUSHED WITH 10CC OF NORMAL SALINE WITH RED/BROWN EXUDATE RETURN. PT STATED ACTIVITY WAS PAINFUL. WILL CONTINUE TO MONITOR.
--- NOTE | 2016-08-16 23:41 | NUR ---
PT RESTING WITH EYES CLOSED. RESP EVEN AND REGULAR. SR UP X2, CALL LIGHT WITHIN REACH.
[2016-08-17 00:30] VITALS: BP 128/78
--- NOTE | 2016-08-17 02:10 | NUR ---
PT AWAKE; STATES PAIN MEDS BEGINNING TO WORK. WILL CONTINUE TO MONITOR.
--- NOTE | 2016-08-17 04:42 | NUR ---
PT AWAKE; DENIES ANY DISCOMFORT. WILL CONTINUE TO MONITOR.
[2016-08-17 04:45] VITALS: BP 126/94
--- NOTE | 2016-08-17 06:17 | NUR ---
VSS THROUGHOUT NIGHT. PT STATES PAIN CONTROLLED WITH NORCO AND BUPRENEX. NEEDS MET; WILL CONTINUE TO MONTIOR.
--- NOTE | 2016-08-17 07:36 | NUR ---
AM ROUNDING DONE, FEMALE MEMBER AT BEDSIDE. DENIES NEEDS AT PRESENT TIME. LEFT IJ SEEN SALINE LOCK. BILIARY BAG SEEN TO LEFT THIGH WITH ORANGE COLORED FLUID. WILL CONTINUE TO MONITOR.
[2016-08-17 08:13] VITALS: BP 115/75
[2016-08-17] MEDS ORDERED: CIPROFLOXACIN750 MG PO (12:00)
[2016-08-17 12:04] VITALS: BP 104/66
--- NOTE | 2016-08-17 13:52 | NUR ---
0397-COMPLAINTS OF LEFT LEG PAIN 10/21, NORCO GIVEN PER REQUEST. PATIENT WANTS TO WAIT "A BIT BEFORE DISCHARGE, I AM IN NO HURRY". SISTER AT BEDSIDE. WILL NEED TO REMOVE AND HOLD PRESSURE TO LEFT IJ. PATIENT HAS A COUGH AT PRESENT TIME, SO WILL NOT REMOVE IJ AT THIS TIME.
--- NOTE | 2016-08-17 14:04 | NUR ---
Patient Name: GARDENIA SUERO Encounter No: [id number] : 1960 Primary Insurance: MEDICARE A & B Anticipated DC Date: 08-17-2016 Planned Disposition: Home WITH HOME HEALTH External Planned Provider: [facility] DCP follow-up note: CM RECEIVED ORDER FOR DISCHARGE AND HOME HEALTH, MTT WITH PT IN ROOM TO DISCUSS DISCHARGE NEEDS. PT REPORTS HE WAS SHOWN HOW TO CARE FOR HIS DRAIN AND RECORD DRAINAGE AMOUNT TO REPORT TO THE DOCTOR BUT WILL ACCEPT HOME HEALTH SINCE THE DOCTOR FEELS HE NEEDS IT. PT CHOSE [facility], CHOICE SIGNED. IMPORTANT MESSAGE FROM MEDICARE PROVIDED AND EXPLAINED. PT IN AGREEMENT FOR DISCHARGE HOME WITH HOME HEALTH FOLLOW UP, FAMILY HERE TO TRANSPORT PT HOME AT DISCHARGE TODAY. CM FAXED REFERRAL AND DISCHARGE INFORMATION TO [facility] [phone]; CM CALLED [facility] AND LEFT REFERRAL INFORMATION FOR [facility] FOR HOME HEALTH FOLLOW UP TOMORROW. NO FURTHER DISCHARGE NEEDS IDENTIFIED AT THIS TIME. Braeden Veras, CASE MANAGEMENT
--- NOTE | 2016-08-17 15:01 | NUR ---
LEFT IJ REMOVED WITH CATH TIP INTACT. PRESSURE HELD WITH SOME BLEEDING SEEN. LAYING FLAT X 15 MIN, WILL CHECK OFTEN ON BLEEDING.
--- NOTE | 2016-08-17 17:40 | NUR ---
1700-VERBAL AND WRITTEN DISCHARGE INSTRUCTIONS GIVEN TO PATIENT AND . NO BLEEDING SEEN TO LEFT IJ SITE. DISCHARGED HOME VIA OWN WHEELCHAIR.
--- NOTE | 2016-08-24 10:08 | EC ---
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 Ao 150 RVOT RA PA AV Gradient Peak 9.00 AV Mean 5.02 AV Area 1.8 MV Gradient Peak 1.6 MV Mean 0.9 MV Area COMMENTS: Crnp: Tiesha BHANDARI Lieutenant Fire Fighter:Jen Vasquez TAPE# PACS DATE OF SERVICE: 08/13/2016 Echocardiogram FINDINGS: 1. Left ventricular chamber size is within normal limits. Left ventricular systolic function is normal. Overall ejection fraction estimated at 55%. 2. Left atrium is enlarged at 4.9 cm. Right atrium and right ventricular chamber sizes are as well moderately dilated. 3. Valvular structures have normal structure and motion. There is no evidence ECHOCARDIOGRAM REPORT [id number] GARDENIA SUERO of vegetative endocarditis. 4. Doppler interrogation only reveals mild tricuspid regurgitation. No other valvular insufficiency or stenosis and pulmonary systolic pressure is normal estimated at 29 mmHg. 5. No evidence of pericardial effusion or left ventricular thrombus. TRANSINT:[id number] Voice Confirmation ID: [id number] DOCUMENT ID: [id number] SCOTTIE ELIZONDO MD at 1008 CC: [id number] DICTATION DATE: 08/13/16 1204 AIR BAG BUFFER: 08/13/16 1632 DIS IN 08/17/[address] [place] [id number] [facility] [address]
== END 2016-08-17 17:42 | disposition home health service (06) | DRG 603 ==
LOC: D.US 10:55 → D.M2 13:27 → D.US 14:30 → D.M2 08-17 17:42
PROVIDERS: Internal Medicine Nephrology; Radiology Diagnostic Radiology; Specialist; Surgery; ADMIT Internal Medicine Nephrology
PROC: 0K9 Muscles, Drainage (ICD-10-PCS; 2016-08-10)
PROC: 02HV33Z Insertion of Infusion Device into Superior Vena Cava, Percutaneous Approach (ICD-10-PCS; principal; 2016-08-11 12:15)
PROC: 0K9R30Z Drainage of Left Upper Leg Muscle with Drainage Device, Percutaneous Approach (ICD-10-PCS; 2016-08-14)
PROC: B548ZZA Ultrasonography of Superior Vena Cava, Guidance (ICD-10-PCS; 2016-08-14)
DX: L03.116 Cellulitis of left lower limb (principal); Z94.0 Kidney transplant status; A02.8 Other specified salmonella infections; K91.2 Postsurgical malabsorption, not elsewhere classified; I82.412 Acute embolism and thrombosis of left femoral vein; D68.9 Coagulation defect, unspecified; Z89.611 Acquired absence of right leg above knee; Z89.512 Acquired absence of left leg below knee; I10 Essential (primary) hypertension; D64.9 Anemia, unspecified; K52.9 Noninfective gastroenteritis and colitis, unspecified; S70.12XA Contusion of left thigh, initial encounter; X58.XXXA Exposure to other specified factors, initial encounter

== ENCOUNTER → 2016-08-25 08:34 | Outpatient (CLI) | payer MEDICARE ==
[2016-08-08 10:38] VITALS: BMI 23.3
--- NOTE | ~2016-08-25 | HEMODYNAMI ---
PATIENT:GARDENIA SUERO MEDICAL RECORD: [id number] : 58 LOCATION:[facility] ADMISSION DATE: 08/25/16 Generatedon:08/25/201610:21 Patient name: GARDENIA SUERO Patient #: [id number] SSN: : 04/1961 Date of study: 08/25/2016 Page: Of Hemodynamic Procedure Report Patient Data Patient Demographics Procedure consent was obtained First Name: GARDENIA Gender: Male Last Name: NIMO : 1960 [facility] Initial: SONYA Age: 55 year(s) Patient #: [id number] Race: Unknown Additional ID: [id number] Contact details [address]: [address] [place] [address] State: [place] City: [place] Zip code: [address] Admission Admission Data Admission Date: 08/25/2016 Admission Time: 8:34 Procedure Procedure Types Cath Procedure Peripheral Cath Diagnostic Procedure Miscellaneous Procedure Description Procedure Date Procedure Date: 08/25/2016 Procedure Start Time: 10:13 Procedure Staff Name Function Ruperto Azevedo MD Performing Physician Clara Ortega RT Scrub Clarisa Tapia RN Nurse Tommie Zarco RT Monitor Procedure Data Cath Procedure Fluoroscopy Diagnostic fluoroscopy Total fluoroscopy Time: 0.4 time: 0.4 min min Diagnostic fluoroscopy Total fluoroscopy dose: 1 dose: 1 mGy mGy Contrast Material Contrast Material Type Amount (ml) Isovue 300 1 Hemodynamics Rest Pre Cath Intra NCS Post Cath Procedure Log Time Note 9:59:43 Tommie Zarco RT (R) (CV) sent for patient. Start room use. 9:59:50 Time tracking: Regular hours 9:59:57 Plan of Care:Hemodynamics will remain stable., Cardiac rhythm will remain stable., Comfort level will be maintained., Respiratory function will remain adequate., Patient/ family verbilizes understanding of procedure., Procedure tolerated without complication., Recovers from procedure without complications.. 10:00:05 Patient received from Other to IR Alert and oriented. Tansferred to table in Prone position. 10:00:06 Correct patient and procedure confirmed by team. 10:00:10 Signed procedure consent form obtained from patient. 10:00:10 Full Disclosure recording started 10:00:11 - 10:00:13 Pre-procedure instructions explained to patient. 10:00:14 Pre-op teaching completed and patient verbalized understanding. 10:00:15 Family in waiting room. 10:00:17 Patient NPO since Midnight. 10:00:22 Use device set IR Diagnostic 10:00:23 Sterile Angiographic Pack opened to sterile field. 10:00:25 Bag Decanter opened to sterile field. 10:00:36 Sharps counted by scrub and verified by R.N. 10:00:37 Alarms reviewed by R. N. 10:00:54 Popliteal region area was prepped with chlora-prep and draped in steril e fashion 10::53 Physician arrived 10::53 --------ALL STOP TIME OUT------ 10:12:54 Final Timeout: patient, procedure, and site verified with staff and physician. All members of the team are in agreement. 10:12:58 Popliteal region site verified by team. 10:13:06 Physical assessment completed. ASA score P 2 - A patient with mild systemic disease as per Ruperto Azevedo MD. 10:13:11 Sedation plan: Local Anesthetic Lidocaine 10:13:26 Procedure started. 10:13:42 Local anesthetic to left popliteal area with Lidocaine 1% by Ruperto Azevedo MD.INITIAL ACCESS ONLY 10:19:04 Procedure ended.(Physican Out) 10:19:20 Fluoroscopy time 00.40 minutes. 10::23 Fluoroscopy dose: 1 mGy 10:19:23 Flurop Dose total: 1 10:19:28 Contrast amount:Isovue 300 1ml. 10:19:31 Sharps counted by scrub and verified by R.N. 10:19:53 OPSITE 4 X 4 APPLIED TO BACK OF LT LEG MID THIGH 10:20:02 Post-procedure physical assessment completed. ASA score P 2 - A patient with mild systemic disease as per Ruperto Azevedo MD. 10:20:04 Post procedure instruction explained to patient.Patient verbalizes understanding. 10:20:05 Procedure and supply charges have been captured, reviewed, submitted an d are correct. 10:20:30 Report given to Other. 10:20:42 Patient transfered to Other with Wheelchair. Device Usage Item Name Manufacture Quantity Catalog Hospital Part Current Minimal Lot# / Number Charge Number Stock Stock Serial# Code Sterile Cardinal 1 [id number] Angiographic Health Pack Bag Decanter Microtek 1 [id number] [employer] Signature Audit Odd Stage Time Signature Unsigned Intra-Procedure 08/25/2016 Tommie 10:21:32 AM Carolee RT (R) (CV) Signatures Monitor : Tommie Signature : Carolee RT Date : Time : [address] [address]
[~2016-08-25 08:34] MED LIST changes: +CIPROFLOXACIN750 MG PO; +KEFLEX500 MG PO; +TEMAZEPAM30 MG PO; +VIBRAMYCIN 100100 MG PO; +VIBRAMYCIN50 MG PO
== END | disposition home or self-care (01) ==
LOC: D.OPS 08:34 → D.RAD 10:00
DX: L02.416 Cutaneous abscess of left lower limb (principal)

== ENCOUNTER → 2016-10-16 09:40 | Outpatient (CLI) | payer MEDICARE ==
[2016-08-08 10:38] VITALS: BMI 23.3
== END | disposition home or self-care (01) ==
LOC: D.LABREF 09:40
DX: R19.7 Diarrhea, unspecified (principal)

== ENCOUNTER 2017-07-27 12:01 | Emergency (ER) | payer MEDICARE ==
[2016-08-08 10:38] VITALS: BMI 23.3
[2017-07-27 13:36] LABS: BASOPHILS 0.1 % (0-2); EOSINOPHILS 1.7 % (0-7); HEMOGLOBIN 13.8 g/dL (13.5-17.5); IMMATURE GRANULOCYTES 0.4 % (0-5); LYMPHOCYTES 21.4 % (15-50); MCH 31.2 pg (26.0-34.0); MCHC 34.5 g/dL (31.0-37.0); MCV 90.5 fL (80.0-100.0); MEAN PLATELET VOLUME 10.7 fL (7.4-10.4); MONOCYTES 14.7 % (2-11); NEUTROPHILS 61.7 % (40-80); RBC 4.42 10x6/uL (4.20-6.10); RDW 16.1 % (11.5-14.5); WBC 6.9 10x3/uL (4.8-10.8)
[2017-07-27 13:40] LABS: PLATELET COUNT 239 10x3/uL (130-400)
[2017-07-27 13:59] LABS: ALBUMIN 3.1 g/dL (3.4-5.0); BILIRUBIN - TOTAL 0.18 mg/dL (0.2-1.3); CALCIUM 8.2 mg/dL (8.5-10.1); CARBON DIOXIDE 18.8 mmol/L (21.0-32.0); CREATININE - SERUM 1.4 mg/dL (0.6-1.3); MAGNESIUM - SERUM 1.6 mg/dL (1.8-2.4); POTASSIUM - SERUM 3.8 mmol/L (3.5-5.1); PROTEIN - SERUM 6.3 g/dL (6.4-8.2)
== END 2017-07-27 15:37 | disposition home or self-care (01) ==
LOC: D.ER 12:01
PROVIDERS: Nurse Practitioner Family
DX: M62.838 Other muscle spasm (principal); Z94.0 Kidney transplant status

== ENCOUNTER 2017-07-28 15:05 | Emergency (ER) | payer MEDICARE ==
[2016-08-08 10:38] VITALS: BMI 23.3
[2017-07-29] MEDS ORDERED: COUMADIN5 MG PO (13:46)
[2017-07-29] MEDS ORDERED: COUMADIN7.5 MG PO (13:46)
[2017-07-29] MEDS ORDERED: HYDROCODONE-APA1 TAB PO (13:47)
[2017-07-29] MEDS ORDERED: RAPAMUNE2 MG PO (13:48)
[2017-07-29] MEDS ORDERED: BACTRIM DS TABL1 TAB PO (13:49)
[2017-07-29] MEDS ORDERED: VALIUM 2 MG TAB2 MG PO (13:50)
== END 2017-07-28 17:27 | disposition home or self-care (01) ==
LOC: D.ER 15:05
DX: M62.838 Other muscle spasm (principal); R25.2 Cramp and spasm

== ENCOUNTER 2017-07-29 12:19 | Inpatient (IN) | payer MEDICARE ==
[2017-07-29] MEDS ORDERED: COUMADIN5 MG PO (13:46)
[2017-07-29] MEDS ORDERED: COUMADIN7.5 MG PO (13:46)
[2017-07-29] MEDS ORDERED: HYDROCODONE-APA1 TAB PO (13:47)
[2017-07-29] MEDS ORDERED: RAPAMUNE2 MG PO (13:48)
[2017-07-29] MEDS ORDERED: BACTRIM DS TABL1 TAB PO (13:49)
[2017-07-29] MEDS ORDERED: VALIUM 2 MG TAB2 MG PO (13:50)
[2017-07-29 14:19] LABS: APPEARANCE CLEAR (CLEAR); BILIRUBIN NEGATIVE (NEGATIVE); COLOR ST (YELLOW); EPITHELIAL CELLS RARE /hpf (0-5); GLUCOSE NEGATIVE (NEGATIVE); KETONE NEGATIVE (NEGATIVE); NITRITE NEGATIVE (NEGATIVE); PROTEIN TRACE mg/dL (NEGATIVE); RED CELLS - URINE >50 /hpf (0-5); UROBILINOGEN NORMAL (NORMAL); WHITE CELLS - URINE 0-5 /hpf (0-5)
[2017-07-29 14:57] VITALS: BP 115/48; BMI 23.1
[2017-07-29 16:22] VITALS: BP 129/95
[2017-07-29 20:00] VITALS: BP 115/85
[2017-07-30 04:00] VITALS: BP 105/69
[2017-07-30 04:31] LABS: INR 1.34 (0.85-1.17); PROTIME 16.1 SECONDS (11.6-15.0)
[2017-07-30 04:32] LABS: BASOPHILS 0.3 % (0-2); EOSINOPHILS 2.3 % (0-7); HEMATOCRIT 42.2 % (42.0-54.0); HEMOGLOBIN 14.6 g/dL (13.5-17.5); IMMATURE GRANULOCYTES 0.2 % (0-5); LYMPHOCYTES 48.1 % (15-50); MCH 30.8 pg (26.0-34.0); MCHC 34.6 g/dL (31.0-37.0); MEAN PLATELET VOLUME 11.4 fL (7.4-10.4); NEUTROPHILS 39.1 % (40-80); PLATELET COUNT 201 10x3/uL (130-400); RBC 4.74 10x6/uL (4.20-6.10); RDW 16.8 % (11.5-14.5); WBC 6.2 10x3/uL (4.8-10.8)
[2017-07-30 04:54] LABS: ANION GAP 16.2 mmol/L (8-16); CARBON DIOXIDE 17.1 mmol/L (21.0-32.0); CREATININE - SERUM 1.1 mg/dL (0.6-1.3); POTASSIUM - SERUM 3.3 mmol/L (3.5-5.1)
[2017-07-30 08:45] VITALS: BP 108/72
[2017-07-30 12:14] VITALS: BP 101/68
[2017-07-30 13:00] VITALS: BMI 23.0
[2017-07-30 16:19] VITALS: BP 124/87
[2017-07-30 20:46] VITALS: BP 118/85
[2017-07-31 05:49] LABS: BASOPHILS 0.4 % (0-2); EOSINOPHILS 2.1 % (0-7); HEMATOCRIT 41.4 % (42.0-54.0); HEMOGLOBIN 14.3 g/dL (13.5-17.5); LYMPHOCYTES 65.1 % (15-50); MCHC 34.5 g/dL (31.0-37.0); MCV 89.8 fL (80.0-100.0); MEAN PLATELET VOLUME 10.9 fL (7.4-10.4); MONOCYTES 10.5 % (2-11); NEUTROPHILS 21.9 % (40-80); PLATELET COUNT 181 10x3/uL (130-400); RBC 4.61 10x6/uL (4.20-6.10); RDW 16.7 % (11.5-14.5); WBC 4.8 10x3/uL (4.8-10.8)
[2017-07-31 06:00] LABS: ANION GAP 15.1 mmol/L (8-16); CALCIUM 8.2 mg/dL (8.5-10.1); CREATININE - SERUM 1.1 mg/dL (0.6-1.3); POTASSIUM - SERUM 3.1 mmol/L (3.5-5.1)
[2017-07-31 06:57] VITALS: BP 107/72
[2017-07-31 10:27] VITALS: BP 112/83
[2017-07-31 12:45] VITALS: BP 106/72
[2017-07-31 16:25] VITALS: BP 103/73
[2017-07-31 20:49] VITALS: BP 111/79
[2017-08-01 05:22] LABS: BASOPHILS 0.3 % (0-2); HEMATOCRIT 39.8 % (42.0-54.0); HEMOGLOBIN 13.5 g/dL (13.5-17.5); IMMATURE GRANULOCYTES 0.3 % (0-5); LYMPHOCYTES 52.4 % (15-50); MCH 30.4 pg (26.0-34.0); MCHC 33.9 g/dL (31.0-37.0); MCV 89.6 fL (80.0-100.0); MEAN PLATELET VOLUME 11.2 fL (7.4-10.4); MONOCYTES 7.4 % (2-11); NEUTROPHILS 38.6 % (40-80); PLATELET COUNT 196 10x3/uL (130-400); RBC 4.44 10x6/uL (4.20-6.10); RDW 16.7 % (11.5-14.5)
[2017-08-01 05:23] LABS: WBC 7.7 10x3/uL (4.8-10.8)
[2017-08-01 05:31] LABS: ANION GAP 11.1 mmol/L (8-16); CALCIUM 7.7 mg/dL (8.5-10.1); CREATININE - SERUM 1.2 mg/dL (0.6-1.3); POTASSIUM - SERUM 3.1 mmol/L (3.5-5.1)
[2017-08-01 05:35] LABS: APTT 41.6 SECONDS (22.8-39.4); INR 1.6 (0.85-1.17); PROTIME 18.5 SECONDS (11.6-15.0)
[2017-08-01 06:33] VITALS: BP 107/74
[2017-08-01 09:46] VITALS: BP 119/78
== END 2017-08-01 11:44 | disposition home or self-care (01) | DRG 864 ==
LOC: D.M2 12:19
PROVIDERS: Internal Medicine Nephrology
DX: R50.9 Fever, unspecified (principal); Z94.0 Kidney transplant status; D68.9 Coagulation defect, unspecified; L03.90 Cellulitis, unspecified; K91.2 Postsurgical malabsorption, not elsewhere classified; I10 Essential (primary) hypertension; I77.1 Stricture of artery; R19.7 Diarrhea, unspecified

== ENCOUNTER 2018-08-26 14:47 | Emergency (ER) | payer MEDICARE ==
[~2018-08-26] VITALS: Ht 182.9 cm; Wt 77.3 kg
[~2018-08-26 14:47] MED LIST changes: +BACTRIM DS TABL1 TAB PO; +HYDROCODONE-APA1 TAB PO; +VALIUM 2 MG TAB2 MG PO
[2018-08-26 15:13] VITALS: Ht 182.9 cm; Wt 77.3 kg
[2018-08-26 18:43] VITALS: BP 158/93
== END 2018-08-26 18:47 | disposition home or self-care (01) ==
LOC: D.ER 14:47
DX: S60.222A Contusion of left hand, initial encounter (principal); W20.8XXA Other cause of strike by thrown, projected or falling object, initial encounter; Y93.89 Activity, other specified; Y92.89 Other specified places as the place of occurrence of the external cause; Z79.01 Long term (current) use of anticoagulants

== ENCOUNTER 2018-09-02 18:24 | Emergency (ER) | payer MEDICARE ==
[~2018-09-02] VITALS: Ht 182.9 cm; Wt 77.3 kg
[2018-09-02 19:09] VITALS: Ht 182.9 cm; Wt 77.3 kg
[2018-09-02 21:24] VITALS: BP 134/89
== END 2018-09-02 21:24 | disposition home or self-care (01) ==
LOC: D.ER 18:24
DX: S60.222D Contusion of left hand, subsequent encounter (principal); X58.XXXD Exposure to other specified factors, subsequent encounter

== ENCOUNTER 2018-12-26 20:32 | Emergency (ER) | payer MEDICARE ==
[~2018-12-26] VITALS: Ht 182.9 cm; Wt 75.0 kg
[2018-12-26 20:38] VITALS: Ht 182.9 cm; Wt 75.0 kg
[2018-12-26] MEDS ORDERED: RAPAMUNE2 MG PO (20:41)
[2018-12-26] MEDS ORDERED: CYCLOBENZAPRINE10 MG PO (20:43)
[2018-12-26] MEDS ORDERED: ULTRAM50 MG PO (20:43)
[2018-12-26 21:42] LABS: APTT 47.8 SECONDS (22.8-39.4); BASOPHILS 0.1 % (0-2); EOSINOPHILS 0.5 % (0-7); HEMATOCRIT 42.8 % (42.0-54.0); IMMATURE GRANULOCYTES 0.6 % (0-5); INR 3.07 (0.85-1.17); LYMPHOCYTES 29.8 % (15-50); MCH 34.8 pg (26.0-34.0); MCV 99.3 fL (80.0-100.0); MEAN PLATELET VOLUME 11.1 fL (7.4-10.4); MONOCYTES 12.3 % (2-11); NEUTROPHILS 56.7 % (40-80); PLATELET COUNT 253 10x3/uL (130-400); PROTIME 30.9 SECONDS (11.6-15.0); RBC 4.31 10x6/uL (4.20-6.10); RDW 16.6 % (11.5-14.5); WBC 11.2 10x3/uL (4.8-10.8)
[2018-12-26 21:56] LABS: ALBUMIN 3.4 g/dL (3.4-5.0); ANION GAP 14.1 mmol/L (8-16); BILIRUBIN - TOTAL 1.48 mg/dL (0.2-1.3); CALCIUM 8.8 mg/dL (8.5-10.1); CARBON DIOXIDE 24.4 mmol/L (21.0-32.0); CREATININE - SERUM 1.2 mg/dL (0.6-1.3); MAGNESIUM - SERUM 1.6 mg/dL (1.8-2.4); POTASSIUM - SERUM 3.5 mmol/L (3.5-5.1); PROTEIN - SERUM 7.9 g/dL (6.4-8.2)
[2018-12-27 03:02] LABS: APPEARANCE CLEAR (CLEAR); BILIRUBIN NEGATIVE (NEGATIVE); COLOR YELLOW (YELLOW); GLUCOSE NEGATIVE (NEGATIVE); KETONE SMALL mg/dL (NEGATIVE); NITRITE NEGATIVE (NEGATIVE); PROTEIN TRACE mg/dL (NEGATIVE); UROBILINOGEN NORMAL (NORMAL)
[2018-12-27 03:03] LABS: BACTERIA FEW /hpf (NONE SEEN); EPITHELIAL CELLS 0-5 /hpf (0-5); WHITE CELLS - URINE 0-5 /hpf (0-5)
[2018-12-27 03:55] VITALS: BP 149/98
== END 2018-12-27 03:56 | disposition home or self-care (01) ==
LOC: D.ER 20:32
PROVIDERS: Family Medicine
DX: E86.0 Dehydration (principal); R25.2 Cramp and spasm; Z89.612 Acquired absence of left leg above knee; Z89.611 Acquired absence of right leg above knee

== ENCOUNTER 2019-02-18 22:07 | Emergency (ER) | payer MEDICARE ==
[~2019-02-18] VITALS: Ht 182.9 cm; Wt 75.5 kg
[~2019-02-18 22:07] MED LIST changes: +CYCLOBENZAPRINE10 MG PO
[2019-02-18 22:16] VITALS: Ht 182.9 cm; Wt 75.5 kg
[2019-02-18] MEDS ORDERED: K-PHOS NEUTRAL250 M1 PO ×2 (22:17→22:18)
[2019-02-18] MEDS ORDERED: NEURONTIN 300300 MG PO (22:18)
[2019-02-18] MEDS ORDERED: ZYRTEC10 MG PO (22:20)
[2019-02-18 22:38] LABS: HEMOGLOBIN 13.5 g/dL (13.5-17.5); MCH 35.2 pg (26.0-34.0); MCHC 35.5 g/dL (31.0-37.0); MCV 99.2 fL (80.0-100.0); MEAN PLATELET VOLUME 11.2 fL (7.4-10.4); RBC 3.83 10x6/uL (4.20-6.10); RDW 15.2 % (11.5-14.5); WBC 7.4 10x3/uL (4.8-10.8)
[2019-02-18 22:40] LABS: PLATELET COUNT 188 10x3/uL (130-400)
[2019-02-18 22:45] LABS: INR 2.45 (0.85-1.17); PROTIME 25.8 SECONDS (11.6-15.0)
[2019-02-18 22:50] LABS: ALBUMIN 3.2 g/dL (3.4-5.0); ANION GAP 13.8 mmol/L (8-16); BILIRUBIN - TOTAL 0.2 mg/dL (0.2-1.3); CALCIUM 7.9 mg/dL (8.5-10.1); CARBON DIOXIDE 26.2 mmol/L (21.0-32.0); CREATININE - SERUM 1.2 mg/dL (0.6-1.3); PROTEIN - SERUM 6.2 g/dL (6.4-8.2)
[2019-02-18 22:52] LABS: MAGNESIUM - SERUM 1.7 mg/dL (1.8-2.4)
[2019-02-18 23:13] LABS: EOSINOPHILS 1 % (0-7); LYMPHOCYTES 60 % (15-50); MONOCYTES 9 % (2-11); NEUTROPHILS 30 % (40-80); PLATELET ESTIMATE NORMAL; PLATELET MORPHOLOGY GIANT PLTS PRESENT
[2019-02-18 23:15] LABS: ACANTHOCYTES 1+
[2019-02-19] MEDS ORDERED: CALCIUM 600 +1 EAC3 PO (01:16)
[2019-02-19 01:45] VITALS: BP 108/78
== END 2019-02-19 01:46 | disposition home or self-care (01) ==
LOC: D.ER 22:07
PROVIDERS: Family Medicine
DX: M62.838 Other muscle spasm (principal); E83.51 Hypocalcemia

== ENCOUNTER 2019-05-21 12:35 | Emergency (ER) | payer MEDICARE ==
[~2019-05-21] VITALS: Ht 182.9 cm; Wt 79.5 kg
[~2019-05-21 12:35] MED LIST changes: +CALCIUM 600 +1 EAC3 PO; +K-PHOS NEUTRAL250 M1 PO; +NEURONTIN 300300 MG PO; +ZYRTEC10 MG PO
[2019-05-21 12:52] VITALS: Ht 182.9 cm; Wt 79.5 kg
[2019-05-21 13:39] LABS: BASOPHILS 0.2 % (0-2); EOSINOPHILS 0.2 % (0-7); HEMATOCRIT 35.1 % (42.0-54.0); IMMATURE GRANULOCYTES 0.3 % (0-5); LYMPHOCYTES 26.4 % (15-50); MCH 36.6 pg (26.0-34.0); MCHC 34.2 g/dL (31.0-37.0); MEAN PLATELET VOLUME 10.9 fL (7.4-10.4); MONOCYTES 5.8 % (2-11); NEUTROPHILS 67.1 % (40-80); RBC 3.28 10x6/uL (4.20-6.10); RDW 18.3 % (11.5-14.5); WBC 6.2 10x3/uL (4.8-10.8)
[2019-05-21 13:40] LABS: PLATELET COUNT 260 10x3/uL (130-400)
[2019-05-21 13:52] LABS: CALC OSMOLALITY 279 mosm/kg (275-300); CALCIUM 8.9 mg/dL (8.5-10.1); CARBON DIOXIDE 27.4 mmol/L (21.0-32.0); CHLORIDE - SERUM 106 mmol/L (98-107); CREATININE - SERUM 0.9 mg/dL (0.6-1.3); GLUCOSE 112 mg/dL (74-106); POTASSIUM - SERUM 4.1 mmol/L (3.5-5.1); SODIUM 139 mmol/L (136-145); UREA NITROGEN 16 mg/dL (7-18); eGFR NON AFRICAN AMERICAN > 90 mL/min (90-120)
[2019-05-21 13:53] LABS: APTT 28.2 SECONDS (22.8-39.4); INR 1.42 (0.85-1.17); PROTIME 16.8 SECONDS (11.6-15.0)
[2019-05-21 13:58] LABS: ALBUMIN 3.2 g/dL (3.4-5.0); ALKALINE PHOSPHATASE 70 U/L (46-116); ALT (SGPT) 39 U/L (10-68); BILIRUBIN - TOTAL 0.55 mg/dL (0.2-1.3)
[2019-05-21 14:15] LABS: MAGNESIUM - SERUM 1.9 mg/dL (1.8-2.4); TROPONIN-I < 0.017 ng/mL (0.000-0.060)
[2019-05-21] MEDS ORDERED: VASOTEC5 MG PO (14:45)
[2019-05-21 15:45] VITALS: BP 139/100
== END 2019-05-21 15:45 | disposition home or self-care (01) ==
LOC: D.ER 12:35
PROVIDERS: Emergency Medicine
DX: Z79.01 Long term (current) use of anticoagulants (principal); Z51.81 Encounter for therapeutic drug level monitoring; D68.59 Other primary thrombophilia

== ENCOUNTER → 2019-06-15 12:09 | Outpatient (CLI) | payer MEDICARE ==
[2019-05-21 12:52] VITALS: BMI 23.8
[~2019-06-15 12:09] MED LIST changes: +VASOTEC5 MG PO
[2019-06-15 12:59] LABS: INR 2.8 (0.85-1.17); PROTIME 28.7 SECONDS (11.6-15.0)
== END | disposition home or self-care (01) ==
LOC: D.LABREF 12:09
PROVIDERS: ATTEND Internal Medicine Nephrology
DX: I80.221 Phlebitis and thrombophlebitis of right popliteal vein (principal); Z51.81 Encounter for therapeutic drug level monitoring

== ENCOUNTER 2019-08-02 15:44 | Inpatient (IN) | payer MEDICARE ==
[~2019-08-02] VITALS: Ht 182.9 cm; Wt 68.9 kg
--- NOTE | ~2019-08-02 | RHP ---
PATIENT: GARDENIA SUERO MEDICAL RECORD: [id number] ACCOUNT: [id number] LOCATION:[facility] : 58 ADMISSION DATE: 08/02/19 REHABILITATION HISTORY AND PHYSICAL EXAMINATION POST ADMISSION PHYSICIAN EXAMINATION ADMITTING DIAGNOSIS: Right femur fracture. HISTORY OF PRESENT ILLNESS: The patient is admitted secondary to a closed comminuted intertrochanteric fracture of the proximal end of the right femur, status post gamma nailing. He is a 58-year-old gentleman who presented complaining of pain to his right stump. He has been out with his dog in his wheelchair. The dog pulled him out of the wheelchair causing him to land on his stump. The patient also has had a kidney transplant in the past, located in his right hip/pelvis area. He is followed by Dr. Lopez. The patient was noted to have an INR of 3.51 upon admission due to Coumadin use and his orthopedic surgeon had put this on hold, did receive 2 units of fresh frozen plasma. He underwent gamma nailing on the right intertrochanteric subtrochanteric fracture per orthopedic surgery on 07/31. He has also been seen by hematology/oncology for workup and is refusing at this, time wanting to get his hip well so that he can get back home and later work on this workup. He is currently having some acute pain. He is having some medication adjustments, muscle spasms. The patient is having to be bridged on heparin until he is therapeutic on his Coumadin. He is receiving some IV iron, B12 injections. He is nonweightbearing to the stump. He has had some acute tachycardia, elevated temperature, impaired mobility, gait disturbance, weakness, high fall risk and self-care deficits. These are all barriers to his discharge home. Lives at home with his , kids and was completely independent with his ADLs and mobility prior to this. He still drives with his left prosthesis and is needing a new casting of his right prosthesis because it is not fitting correctly. He is currently set up for mod assist with ADLs and mod assist with his mobility. Plans to be able to return home and be able to use his wheelchair again and continued to be independent as possible with home health set-up. 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 PAST MEDICAL HISTORY: Significant for migraines, hypertension, history of coronary artery disease, peripheral vascular disease, chronic anticoagulation, he has had multiple amputations, depression. PAST SURGICAL HISTORY: Includes colon resection, he has had a dialysis catheter placed, he has had AV fistula, he has had a right upper extremity hand amputation, right above the knee, left below the knee, splenectomy and a kidney transplant. ALLERGIES: No known drug allergies. CURRENT MEDICATIONS: Include Warfarin 5 mg on Wednesday, Wednesday, Wednesday, and Fridays, he is on 7.5 Wednesday, and Wednesday. He is on Jo 60 mg daily. He is on prednisone 5 mg daily, potassium 20 mEq daily, Mag-Ox 400 mg HISTORY AND PHYSICAL [id number] GARDENIA SUERO daily, calcium 500 mg daily, [place] 1 tab every 8 hours of the . He is still on heparin 5000 units every 8 hours. He is on Vasotec as needed for elevated systolic blood pressure greater than 150. He is on Neutra-Phos 1 packet b.i.d., Bactrim 1 tab bedtime, Robaxin 500 mg q.i.d., Restoril 30 mg at bedtime p.r.n., and Lomotil as needed for diarrhea. HABITS: No alcohol or tobacco use. FAMILY HISTORY: Noncontributory. SOCIAL HISTORY: The patient hopes to return back home and get back to his prior level of functioning. REVIEW OF SYSTEMS: GENERAL: Does complain of weakness. HEENT: Denies cold, cough, or congestion. CARDIOVASCULAR: Denies chest pain. PHYSICAL EXAMINATION: VITAL SIGNS: Stable, afebrile. GENERAL: A well-developed gentleman in no acute distress upon exam. HEENT: Normocephalic and atraumatic. Mucosa moist. NECK: Supple. No lymphadenopathy. LUNGS: Clear in upper hyatt. No wheezing, rhonchi or rales. HEART: Regular rate and rhythm. No murmurs, rubs or gallops. ABDOMEN: Soft, benign and nontender. Positive bowel sounds times 4. EXTREMITIES: Does have an xddqk-ipg-fawi amputation on the right and zhfeh-avq-zkci amputation on the left. He is missing a hand on one side. NEUROLOGIC: He is mainly intact. LABORATORY DATA: His white count is 10,000, H&H of 9.8 and 29.1 and platelet count was noted to be 273. His INR is 1.4. His sodium is 139, potassium 4.2, BUN and creatinine of 13 and 1.0 and blood sugar is noted to be 115. ASSESSMENT: This is a 58-year-old gentleman admitted to the rehab with a working diagnosis of femur fracture status post gamma nailing. The patient has potential to make improvement. We instituted the following multidisciplinary therapies include, but not limited to physical, occupational, respiratory, speech, nutritional services, prosthetics and orthotics. Given his complex medical condition and risks for more complications, rehabilitation services cannot be provided at a low level of care such as skilled nurse facility. PLAN: 1. Admit to [facility] for intensive inpatient therapy to include the following disciplines; A. Physical therapy to improve gait, all transfer skills and bed mobility to a modified independent level. B. Occupational therapy to a modified independent level. C. Case management to assist with discharge planning and placement options. D. Nutrition to assist with nutritional needs. E. Rehabilitation nursing to assist in monitoring the patient's underlying medical conditions and to assist with any type of bowel or bladder management. 2. The patient's current medication and medical care will be continued. 3. The patient will be placed on standard fall precautions. 4. We will go ahead and watch his INR closely and bridge as needed. HISTORY AND PHYSICAL [id number] GARDENIA SUERO 5. I will see again in the a.m. 6. Appreciate nephrology seeing this patient. TRANSINT:[id number] Voice Confirmation ID: [id number] DOCUMENT ID: [id number] 08/07/2019 Edited for atul BAEZ. SASHA notes whether there has been none or any medical/functional change since admission: - No change since preadmission screen. SASHA attests patient continues to be appropriate for IRF: - Continues to be appropriate. MARK JOSHI MD CC: [id number] DICTATION DATE: 08/03/1943 STORE WORKER: 08/03/19 0932 DIS IN 08/07/19 [facility] [address] [facility] [address]
[~2019-08-02 15:44] MED LIST changes: +HEPARIN SOD5000 U/ML SC; +LOMOTIL 2.5-0.1 EAC1 PO; +ROBAXIN PO
--- NOTE | 2019-08-02 19:30 | NUR ---
PATIENT RECEIVED SITTING UP IN BED. AT BEDSIDE. ADMISSION PAPERS SIGNED. VITAL SIGNS DONE. BP ELEVATED & PATIENT REQUEST FOR HIS PRN BP MEDICATION. PATIENT STATED TO PHARMACIST PARAMETERS FOR HIS PRN ENALAPRIL. PATIENT C/O MUSCLE SPASMS & PAIN. PATIENT NOTIFIED OF MEDICATIONS WILL BE GIVEN SOON PHARMACY TYPES MEDICATION IN XIS & MEDICATIONS ON AUG. PATIENT SAID " I UNDERSTAND." CALL LIGHT WITHIN REACH. WILL CONTINUE TO MONITOR.
[2019-08-02 22:11] VITALS: BP 157/88
[2019-08-03 01:35] VITALS: BP 157/88; BMI 20.6
--- NOTE | 2019-08-03 03:38 | NUR ---
PATIENT AWAKE. IN PAIN. PATIENT GIVEN MEDICATION, NOT EFFECTIVE AT THIS TIME. CALL LIGHT WITHIN REACH. WILL CONTINUE TO MONITOR.
[2019-08-03 08:26] LABS: BASOPHILS 0.1 % (0-2); EOSINOPHILS 1.4 % (0-7); HEMATOCRIT 29.1 % (42.0-54.0); HEMOGLOBIN 9.8 g/dL (13.5-17.5); IMMATURE GRANULOCYTES 0.9 % (0-5); LYMPHOCYTES 24.9 % (15-50); MCHC 33.7 g/dL (31.0-37.0); MCV 112.8 fL (80.0-100.0); MEAN PLATELET VOLUME 11.5 fL (7.4-10.4); MONOCYTES 12.5 % (2-11); NEUTROPHILS 60.2 % (40-80); RBC 2.58 10x6/uL (4.20-6.10); RDW 15.7 % (11.5-14.5); WBC 10.2 10x3/uL (4.8-10.8)
[2019-08-03 08:31] LABS: PLATELET COUNT 273 10x3/uL (130-400)
[2019-08-03 08:34] LABS: APTT 69.7 SECONDS (22.8-39.4); INR 1.4 (0.85-1.17)
[2019-08-03 08:36] LABS: CALC OSMOLALITY 278 mosm/kg (275-300); CALCIUM 9.3 mg/dL (8.5-10.1); CARBON DIOXIDE 25.9 mmol/L (21.0-32.0); CHLORIDE - SERUM 105 mmol/L (98-107); GLUCOSE 115 mg/dL (74-106); POTASSIUM - SERUM 4.2 mmol/L (3.5-5.1); SODIUM 139 mmol/L (136-145); eGFR NON AFRICAN AMERICAN 81 mL/min (90-120)
[2019-08-03 08:37] LABS: UREA NITROGEN 13 mg/dL (7-18)
[2019-08-03 08:43] VITALS: BP 111/67
--- NOTE | 2019-08-03 12:59 | NUR ---
HAS BEEN UP WORKING WITH THERAPY. DENIES INCREASED DISCOMFORT. DOES MUCH FOR HIMSELF POSSIBLE. USES URINAL IN BED TO VOID. BED IN LOWEST POSITION, SIDE RAILS UP X2. CALL LIGHT IN REACH
[2019-08-03 15:34] VITALS: Ht 182.9 cm; Wt 68.9 kg
--- NOTE | 2019-08-03 17:44 | NUR ---
SITTING UP IN BED EATING SUPPER. PAIN MEDS GIVEN AND HE STATES HIS PAIN IS LESS NOW. CALL LIGHT IN REACH.
--- NOTE | 2019-08-03 19:33 | NUR ---
PATIENT RECEIVED SITTING UP IN BED. VITAL SIGNS & ASSESSMENT DONE. NO C/O PAIN OR DISTRESS. BED LOW. CALL LIGHT WITHIN REACH. WILL CONTINUE TO MONITOR.
[2019-08-03 22:10] VITALS: BP 102/73
--- NOTE | 2019-08-04 02:54 | NUR ---
I have reviewed this patient and I concur with the Shift Assessment completed by the Licensed Practical Nurse today this shift.
[2019-08-04 07:47] LABS: BASOPHILS 0.1 % (0-2); CARBON DIOXIDE 22.5 mmol/L (21.0-32.0); CREATININE - SERUM 1.2 mg/dL (0.6-1.3); EOSINOPHILS 2.8 % (0-7); HEMATOCRIT 29.7 % (42.0-54.0); HEMOGLOBIN 9.7 g/dL (13.5-17.5); IMMATURE GRANULOCYTES 0.5 % (0-5); LYMPHOCYTES 36.3 % (15-50); MAGNESIUM - SERUM 1.8 mg/dL (1.8-2.4); MCHC 32.7 g/dL (31.0-37.0); MCV 113.4 fL (80.0-100.0); MEAN PLATELET VOLUME 12.2 fL (7.4-10.4); MONOCYTES 11.7 % (2-11); NEUTROPHILS 48.6 % (40-80); PLATELET COUNT 303 10x3/uL (130-400); RBC 2.62 10x6/uL (4.20-6.10); RDW 16.6 % (11.5-14.5); WBC 8.6 10x3/uL (4.8-10.8)
[2019-08-04 07:49] LABS: INR 1.68 (0.85-1.17); PROTIME 19.6 SECONDS (11.6-15.0)
[2019-08-04 07:50] LABS: PHOSPHOROUS 3.6 mg/dL (2.5-4.9); POTASSIUM - SERUM 3.5 mmol/L (3.5-5.1)
[2019-08-04 07:52] LABS: APTT 46.7 SECONDS (22.8-39.4)
[2019-08-04 08:25] VITALS: BP 99/67
--- NOTE | 2019-08-04 13:25 | NUR ---
HAD INCONT EPISIDE OF STOOL IN BED.
--- NOTE | 2019-08-04 14:22 | NUR ---
PATIENT ADMITTED TO REHAB FROM ACUTE FLOOR. HIS PCP IS DR. ARREGUIN. DME AT HOME IS A WALKER, AND A POWER CHAIR.DISCHARGE PLANS ARE FOR PATIENT TO RETURN HOME WITH HIS FAMILY. WILL CONTINUE TO FOLLOW WITH PATIENT.
--- NOTE | 2019-08-04 19:30 | NUR ---
PT IS RESTING IN BED WITH EYES OPEN. ALERT AND ORIENTED X 3. DENIES ACUTE PAIN OR DISCOMFORT AT THIS TIME. NO NEEDS VOICED. INCISIONS TO RIGHT LEG X 4 ARE CDI. NO DRAINAGE NOTED. SPOUSE IS AT BEDSIDE. SR'S ARE UP X 2 IN BED. CALL LIGHT AND BEDSIDE TABLE ARE WITHIN EASY REACH.
[2019-08-04 21:50] VITALS: BP 123/80
--- NOTE | 2019-08-04 21:55 | NUR ---
PT IS RESTING IN BED WITH EYES OPEN. NO NEEDS VOICED.
--- NOTE | 2019-08-05 00:18 | NUR ---
I have reviewed this patient and I concur with the Shift Assessment completed by the Licensed Practical Nurse today this shift.
--- NOTE | 2019-08-05 04:26 | NUR ---
PT ASSISTED TO THE BATHROOM WITH MIN ASSIST. HE TRANSFERRED SELF INTO THE WC AND ONTO THE TOILET INDEPENDENTLY.
[2019-08-05 07:00] VITALS: BP 188/86
[2019-08-05 07:06] LABS: PROTIME 23.2 SECONDS (11.6-15.0)
[2019-08-05 07:08] LABS: APTT 66.6 SECONDS (22.8-39.4); INR 2.09 (0.85-1.17)
--- NOTE | 2019-08-05 07:30 | NUR ---
A/A/OX4. RESTING QUIETLY IN BED WATCHING TV. NO REQUESTS VOICED AT THIS TIME. ASSESSMENT COMPLETED AND WILL CONTINUE POC. CALL LIGHT IN REACH, BED IN LOWEST POSITION AND SIDERAILS UP X 2. DRESSINGS TO INCISION ON RIGHT LEG C/D/I.
--- NOTE | 2019-08-05 15:10 | NUR ---
I have reviewed this patient and I concur with the Shift Assessment completed by the Licensed Practical Nurse today this shift.
[2019-08-05 20:00] VITALS: BP 110/76
--- NOTE | 2019-08-05 20:00 | NUR ---
PATIENT RECEIVED SITTING UP IN BED. AT BEDSIDE HELPING PATIENT BED BATH. PATIENT ASKED TO HAVE BANDAIDS REMOVED OFF SURGICAL SITES, THIS NURSE DID SO. THE LEFT SIDE OF RIGHT LEG HAD 3 MAHESH. THE INNER SIDE OF RIGHT LEG HAD 2 SMALL INCISIONS WITH 4 MAHESH EACH. SITES CLEANED & COVERED UP PER PATIENT REQUEST. BED LOW. CALL LIGHT WITHIN REACH. WILL CONTINUE TO MONITOR.
--- NOTE | 2019-08-05 21:00 | NUR ---
PATIENT USED CALL LIGHT FOR ASSIST. WHEELCHAIR PLACED AT BEDSIDE. PATIENT MANEUVERED HIS BODY AROUND IN FRONT. PATIENT USED HIS RIGHT ARM TO LIFT HIS BODY INTO CHAIR. PATIENT WHEELED INTO BATHROOM, PLACED HIS BODY ON COMMODE. PATIENT INSTRUCTED TO USE HIS CALL LIGHT. CALL LIGHT ON, PATIENT PLACED HIS BODY INTO CHAIR SAME BEFORE. PATIENT RETURNED TO BED. PATIENT HAD VOID & BM. CALL LIGHT WITHIN REACH. BED LOW. WILL CONTINUE TO MONITOR.
--- NOTE | 2019-08-06 01:00 | NUR ---
I have reviewed this patient and I concur with the Shift Assessment completed by the Licensed Practical Nurse today this shift.
[2019-08-06 07:17] LABS: INR 2.48 (0.85-1.17); PROTIME 26.5 SECONDS (11.6-15.0)
[2019-08-06 07:20] LABS: APTT 40.6 SECONDS (22.8-39.4)
[2019-08-06 10:08] VITALS: BP 129/87
--- NOTE | 2019-08-06 14:30 | NUR ---
I have reviewed this patient and I concur with the Shift Assessment completed by the Licensed Practical Nurse today this shift.
--- NOTE | 2019-08-06 19:27 | NUR ---
PT IS RESTING IN BED WITH EYES OPEN. ALERT AND ORIENTED X 3. DENIES ACUTE PAIN OR DISCOMFORT AT THIS TIME. NO OTHER NEEDS VOICED. PT ANXIOUS TO SEE MD TO ASK ABOUT DC HOME. SR'S ARE UP X 2 IN BED. CALL LIGHT AND BEDSIDE TABLE ARE WITHIN EASY REACH.
[2019-08-06 21:18] VITALS: BP 127/70
--- NOTE | 2019-08-06 23:34 | NUR ---
PT RESTING IN BED. NO ACUTE DISTRESS NOTED.
--- NOTE | 2019-08-07 01:06 | NUR ---
I have reviewed this patient and I concur with the Shift Assessment completed by the Licensed Practical Nurse today this shift.
--- NOTE | 2019-08-07 05:53 | NUR ---
PT RESTING IN BED WITH EYES CLOSED. NO DISTRESS NOTED.
[2019-08-07 07:44] LABS: BASOPHILS 0.2 % (0-2); EOSINOPHILS 2.4 % (0-7); HEMATOCRIT 30.9 % (42.0-54.0); HEMOGLOBIN 10.4 g/dL (13.5-17.5); IMMATURE GRANULOCYTES 0.5 % (0-5); LYMPHOCYTES 29.4 % (15-50); MCH 36.2 pg (26.0-34.0); MCHC 33.7 g/dL (31.0-37.0); MCV 107.7 fL (80.0-100.0); MEAN PLATELET VOLUME 11.6 fL (7.4-10.4); MONOCYTES 13.7 % (2-11); NEUTROPHILS 53.8 % (40-80); RBC 2.87 10x6/uL (4.20-6.10); RDW 16.7 % (11.5-14.5); WBC 9.4 10x3/uL (4.8-10.8)
[2019-08-07 07:45] LABS: PLATELET COUNT 496 10x3/uL (130-400)
[2019-08-07 07:49] LABS: CALC OSMOLALITY 268 mosm/kg (275-300); CALCIUM 9.3 mg/dL (8.5-10.1); CARBON DIOXIDE 21.3 mmol/L (21.0-32.0); CHLORIDE - SERUM 104 mmol/L (98-107); GLUCOSE 102 mg/dL (74-106); POTASSIUM - SERUM 3.6 mmol/L (3.5-5.1); SODIUM 134 mmol/L (136-145); UREA NITROGEN 16 mg/dL (7-18); eGFR NON AFRICAN AMERICAN 81 mL/min (90-120)
[2019-08-07 07:51] LABS: APTT 37.3 SECONDS (22.8-39.4)
[2019-08-07 07:52] LABS: INR 4.1 (0.85-1.17); PROTIME 38.9 SECONDS (11.6-15.0)
[2019-08-07 08:14] VITALS: BP 120/90
[2019-08-07] MEDS ORDERED: NORCO-7.5 PO (08:44)
--- NOTE | 2019-08-07 10:13 | NUR ---
PATIENT DISCHARGING HOME TODAY WITH FAMILY, [facility] WILL PROVIDE THERAPY AT HOME. NO COMPARE DATA REVIEWED PATIENT HAS DECLINED, PATIENT CHOICE FORM FOR HOME HEALTH SIGNED, ONE GIVEN TO PATIENT AND ONE FILED IN CHART. [facility] FORM SIGNED, ONE GIVEN TO PATIENT AND EXPLAINED THEN FILED IN CHART. NO NEW DME NEEDED AT THIS TIME. DR. ARREGUIN 08/17/2019 @ 10:00, DR. MOORE 08/16/2019 @ 11:00. DS[facility]ARGE INSTSRUCTIONS FAXED TO PCP, HOME HEALTH AND REVIEWED WITH PATIENT.
--- NOTE | 2019-08-07 11:00 | NUR ---
DC HOME WITH ALL PERSONAL BELONGINGS. AT BEDSIDE. REVIEWED MEDS AND DC PLAN. PT DENIES NEEDING ANY MEDS CALLED IN. PAPER SCRIPT FOR PAIN MEDS GIVEN. HE DENIES QUESTIONS.
== END 2019-08-07 13:04 | disposition home health service (06) | DRG 560 ==
LOC: D.REHAB 15:44
PROVIDERS: Internal Medicine Nephrology; ADMIT Emergency Medicine; ATTEND Emergency Medicine
DX: S72.141D Displaced intertrochanteric fracture of right femur, subsequent encounter for closed fracture with routine healing (principal); Z94.0 Kidney transplant status; W05.0XXD Fall from non-moving wheelchair, subsequent encounter; E53.8 Deficiency of other specified B group vitamins; D53.9 Nutritional anemia, unspecified; I73.9 Peripheral vascular disease, unspecified; I10 Essential (primary) hypertension; I25.10 Atherosclerotic heart disease of native coronary artery without angina pectoris; Z89.512 Acquired absence of left leg below knee; Z89.111 Acquired absence of right hand; Z79.01 Long term (current) use of anticoagulants

== ENCOUNTER → 2019-08-12 10:55 | Outpatient (CLI) | payer MEDICARE ==
[2019-08-03 15:34] VITALS: BMI 20.6
[~2019-08-12 10:55] MED LIST changes: +NORCO-7.5 PO
[2019-08-12 11:14] LABS: BASOPHILS 0.4 % (0-2); EOSINOPHILS 1.1 % (0-7); HEMATOCRIT 36.3 % (42.0-54.0); HEMOGLOBIN 11.8 g/dL (13.5-17.5); IMMATURE GRANULOCYTES 0.4 % (0-5); LYMPHOCYTES 34.5 % (15-50); MCHC 32.5 g/dL (31.0-37.0); MCV 107.7 fL (80.0-100.0); MEAN PLATELET VOLUME 11.1 fL (7.4-10.4); MONOCYTES 10.1 % (2-11); NEUTROPHILS 53.5 % (40-80); RBC 3.37 10x6/uL (4.20-6.10); RDW 16.1 % (11.5-14.5); WBC 8.1 10x3/uL (4.8-10.8)
[2019-08-12 11:19] LABS: INR 2.69 (0.85-1.17); PLATELET COUNT 682 10x3/uL (130-400); PROTIME 28.1 SECONDS (11.6-15.0)
[2019-08-12 11:29] LABS: ANION GAP 13.9 mmol/L (8-16); CALCIUM 9.4 mg/dL (8.5-10.1); CHOL - HDL RATIO 2.8 ratio (2.3-4.9); CREATININE - SERUM 1.1 mg/dL (0.6-1.3); LDL-HDL RATIO 1.1 ratio (1.5-3.5); PHOSPHOROUS 3.1 mg/dL (2.5-4.9); POTASSIUM - SERUM 3.9 mmol/L (3.5-5.1)
== END | disposition home or self-care (01) ==
LOC: D.LABREF 10:55
PROVIDERS: ATTEND Internal Medicine Nephrology
DX: Z48.22 Encounter for aftercare following kidney transplant (principal)

== ENCOUNTER 2019-12-18 18:10 | Emergency (ER) | payer MEDICARE ==
[~2019-12-18] VITALS: Ht 182.9 cm; Wt 77.3 kg
[2019-12-18 19:29] VITALS: Ht 182.9 cm; Wt 77.3 kg
[2019-12-18] MEDS ORDERED: HYDROCODON-ACE1 EA10 PO (20:07)
[2019-12-18 20:29] VITALS: BP 138/101
== END 2019-12-18 20:29 | disposition home or self-care (01) ==
LOC: D.ER 18:10
DX: M87.9 Osteonecrosis, unspecified (principal); I10 Essential (primary) hypertension; M25.532 Pain in left wrist